=== PATIENT | male | born 1930 | race Caucasian/White ===

== ENCOUNTER 2016-02-19 18:16 | Emergency (ER) | payer OTHER ==
[~2016-02-19] VITALS: Ht 167.6 cm; Wt 88.5 kg
[~2016-02-19 18:16] MED LIST: CARVEDILOL12.5 MG PO; DIGOXIN0.125 MG PO; ELIQUIS5 M1 PO; FINASTERIDE5 MG PO; FUROSEMIDE40 MG PO; GLIPIZIDE10 MG PO; LISINOPRIL20 MG PO; MAGNESIUM OXID400 MG PO; METFORMIN850 MG PO; PRAVASTATIN SOD40 MG PO; TIKOSYN250 MCG PO; TRADJENTA5 MG PO; WARFARIN SODIUM5 MG PO
[2016-02-19] MEDS ORDERED: TAMSULOSIN HCL0.4 M1 PO (19:55)
[2016-02-19 19:57] LABS: ABSOLUTE BASOPHIL COUNT 0 /CUMM (0.0-0.2); ABSOLUTE EOSINOPHIL COUNT 0 /CUMM (0.0-0.7); ABSOLUTE GRANULOCYTE CT 11.1 /CUMM (1.4-6.5); ABSOLUTE LYMPH COUNT 1.3 /CUMM (1.2-3.4); ABSOLUTE MONOCYTE COUNT 0.2 /CUMM (0.10-0.60); BASOPHIL % 0.1 % (0.0-2.0); EOSINOPHIL % 0.1 % (0-5); GRANULOCYTE % 87.9 % (42.2-75.2); MEAN CORPUSCULAR HGB 29.4 PG (27.0-31.0); MEAN CORPUSCULAR HGB CONC 32.5 G/DL (33.0-37.0); MEAN CORPUSCULAR VOLUME 90.4 FL (80.0-94.0); MEAN PLATELET VOLUME 9.1 FL (7.4-10.4); PLATELET COUNT 232 /CUMM (130-400); RED BLOOD CELL CT 4.54 /CUMM (4.70-6.10); WHITE BLOOD CELL COUNT 12.7 /CUMM (4.8-10.8)
--- NOTE | 2016-02-19 21:15 | ED GI/GU/ABDOMINAL COMPLAINT ---
History of Present Illness General Chief Complaint: General Adult Stated Complaint: SIB WALK IN, SWOLLOWED LAUNDRY DETERGENT @ 1PM Source: patient, family Exam Limitations: no limitations Allergies Coded Allergies: NO KNOWN ALLERGIES (12/27/15) Triage Note: PT TO ED AFTER ACCIDENTLY INGESTING PART OF A GAIN TROPICAL LAUNDRY DETERGENT POD. PT REPORTING HE HAS VERY POOR VISION DUE TO CATARACTS AND SAW A BRIGHT PINK CONTAINER THAT SAID "TROPICAL AND ASSUMED IT WAS JUICE OR SOMETHING I PUT ONE IN MY MOUTH, BIT INTO IT AND REALIZED IT WAS BAD AND THEN SPIT IT OUT." PT REPORTING THIS HAPPENED AROUND 1 PM TODAY. STATES HE HAD ONE EPISODE OF VOMITING AND DIARRHEA POST INGESTION. PT NOW REPORTING WRETCHING AND "HOARSENESS". Triage Nurses Notes Reviewed? yes HPI: This patient is an 85-year-old male with a past medical history including hypertension who presented to the emergency department today accompanied by his family members for evaluation of nausea and vomiting after accidentally ingesting laundry detergent. The patient reported that he has cataracts and he saw something that said, "tropical," on it. He reported that he thought it was a gummy candy and put in his mouth. He reported that when he bit into it and it did not taste good so he put it down. However, he reported that the detergent gushed into his mouth. He reported that she tried to eat and drink several times after that, but whenever he tried to put anything in his mouth he vomited. He was feeling nauseous. The patient denied any fevers, chills, chest pain, difficulty breathing, abdominal pain. He reported that he did have several episodes of nonbloody diarrhea. The patient's family member called poison control that told him that it was too late to use activated charcoal and that he should come to the emergency department to have evaluation and blood work. (TIGIST JANE,HEIDE) Vital Signs & Intake/Output Vital Signs & Intake/Output Vital Signs Date Time Temp Pulse Resp B/P Pulse O2 O2 Flow FiO2 Ox Delivery Rate 02/18 2345 97.3 70 18 130/77 96 02/189 97.9 80 20 124/68 95 Room Air 02/18 1832 98.0 78 16 160/93 100 Room Air ED Intake and Output 02/19 0000 02/18 1200 Intake Total 0 Output Total Balance 0 Intake, Oral 0 Patient 195 lb Weight Reconcile Medications Apixaban (Eliquis) 5 MG TABLET 1 TAB PO BID BLOOD THINNER (Reported) Carvedilol 12.5 MG TABLET 1 TAB PO BID HEART (Reported) Digoxin 0.125 MG TAB 1 TAB PO DAILY CARDIAC (Reported) Dofetilide (Tikosyn) 250 MCG CAPSULE 1 CAP PO DAILY HEART (Reported) Finasteride 5 MG TABLET 5 MG PO DAILY BPH (Reported) Furosemide 40 MG TABLET 1 TAB PO DAILY CHF (Reported) Glipizide 10 MG TABLET 1 TAB PO DAILY NIDDM (Reported) Lisinopril 20 MG TABLET 20 MG PO DAILY HTN (Reported) Magnesium Oxide 400 MG TABLET 1 TAB PO BID CARDIAC (Reported) METFORMIN HCL (Metformin) 850 MG TABLET 850 MG PO BID NIDDM (Reported) Ondansetron (Zofran Odt) 4 MG TAB.RAPDIS 1 TAB SL TID PRN NAUSEA Pravastatin Sodium 40 MG TABLET 40 MG PO DAILY GI (Reported) Tamsulosin HCl (Unknown Strength) CAP.ER.24H (Unknown Dose) PO AD ( Reported) (LUIS ENRIQUE MC,CHELSEY Reyes) Past History Travel History Traveled to [place] past 21 day No Medical History Any Pertinent Medical History? see below for history EENT: cataracts Cardiovascular: hypertension Endocrine: diabetes History of MRSA: No History of VRE: No History of CDIFF: No Pneumonia Vaccine: 11/13/12 Influenza Vaccine: 11/13/08 Tetanus Vaccine: 12/27/15 Surgical History Surgical History: non-contributory Psychosocial History Who do you live with Spouse What is your primary language Qatari Tobacco Use: Never used ETOH Use: denies use Illicit Drug Use: denies illicit drug use Family History Family History, If Any: BROTHER FH: arrhythmia BROTHER Tumor FATHER FH: liver disease Hx Contributory? No (HEIDE ESCOTO PA-C) Review of Systems Review of Systems Constitutional: Reports: no symptoms. EENTM: Reports: no symptoms. Respiratory: Reports: no symptoms. Cardiovascular: Reports: no symptoms. GI: Reports: see HPI. Genitourinary: Reports: no symptoms. Musculoskeletal: Reports: no symptoms. Skin: Reports: no symptoms. Neurological/Psychological: Reports: no symptoms. All Other Systems: Reviewed and Negative (HEIDE ESCOTO PA-C) Physical Exam Physical Exam Gastrointestinal: normal bowel sounds, soft, non-tender, no organomegaly, NO REBOUND OR GUARDING. nO PERITONEAL SIGNS. nONDISTENDED Comments: Well-developed well-nourished person in no acute distress HEENT: Normal EENT exam, moist mucous membranes PERRLA bilaterally. EOMI bilaterally Neck: Supple, no lymphadenopathy Back: Normal inspection Cardiovascular: Regular rate and rhythm with no murmurs, rubs, or gallops Respiratory: No respiratory distress. Breath sounds clear to auscultation bilaterally Extremity: Normal and equal pulses Neuro: Alert oriented x3, cranial nerves II through XII grossly intact. Skin: No appreciable rash on exposed skin, skin is warm and dry. Psych: Mood and affect is normal Core Measures ACS in differential dx? No Severe Sepsis Present: No Septic Shock Present: No (HEIDE ESCOTO PA-C) Progress Differential Diagnosis: AMI, appendicitis, biliary colic, bowel obstruction, colon cancer, cholecystitis, diverticulitis, gastritis, ischemic bowel, inflamm bowel dis, Jayleen-Lebron tear, pancreatitis, PUD/GERD, perforated viscous, INGESTION OF POISONOUS SUBSTANCES, MEDICATION REACTION Initial ED EKG: normal axis, normal intervals, normal sinus rhythm, 80 BPM Comments: 02/19/2016 9:14:01 PM: Discussed this patient with poison control. She reported that detergent often irritates the GI tract and causes vomiting. This patient has stable vital signs. He is smiling and resting completely stretcher. Nontoxic appearing. We will PO challenge this patient with water. As long as he is able to tolerate fluids, this patient will be stable for discharge. 02/19/2016 10:11:17 PM: The patient was able to tolerate water without vomiting or nausea. However, one of the patient's family members when He had some hives on both his shoulders. The patient denied any itching. He denied any difficulty breathing. We'll give this patient IV Benadryl, Solu-Medrol, and Pepcid. (HEIDE ESCOTO PA-C) Plan of Care: Orders Procedure Date/time Status TROPONIN LEVEL 02/19 1932 Complete LIPASE 02/19 1932 Complete HEPATIC FUNCTION PANEL 02/19 1932 Complete CBC WITHOUT DIFFERENTIAL 02/19 1932 Complete BASIC METABOLIC PANEL 02/19 1932 Complete AMYLASE 02/19 1932 Complete EKG 02/19 1932 Active Laboratory Tests 02/19/161944: Anion Gap 14, Estimated GFR > 60, BUN/Creatinine Ratio 30.0 H, Glucose 196 H, Calcium 9.2, Total Bilirubin 1.1, Direct Bilirubin 0.4, AST 20, ALT 18 L, Alkaline Phosphatase 104, Troponin I < 0.01, Total Protein 8.1, Albumin 4.2, Amylase 103, Lipase 65, CBC w Diff NO MAN DIFF REQ, RBC 4.54 L, MCV 90.4, MCH 29.4, RDW 15.0 H, MPV 9.1, Gran % 87.9 H, Lymphocytes % 10.1 L, Monocytes % 1.8, Eosinophils % 0.1, Basophils % 0.1, Absolute Granulocytes 11.1 H, Absolute Lymphocytes 1.3, Absolute Monocytes 0.2, Absolute Eosinophils 0, Absolute Basophils 0, PUBS MCHC 32.5 L Departure Departure Disposition: HOME OR SELF CARE Condition: Stable Clinical Impression Primary Impression: Ingestion of detergent or soap Referrals: ARIN MC,JOSHUA (PCP/Family) Additional Instructions: Be sure to stay hydrated and rest. Take Zofran as prescribed for nausea. Please call to make a follow-up appointment with your primary care physician. Return for any worsening symptoms or concerns. Departure Forms: Customer Survey General Discharge Information Prescriptions: Current Visit Scripts Ondansetron (Zofran Odt) 1 TAB SL TID PRN NAUSEA #10 TAB (TIGIST JANE,HEIDE) PA/INSULATION WORKER APPRENTICE Co-Sign Statement Statement: ED Attending supervision documentation- [] I saw and evaluated the patient. I have also reviewed all the pertinent lab results and diagnostic results. I agree with the findings and the plan of care as documented in the PA's/INSULATION WORKER APPRENTICE's documentation. [x] I have reviewed the ED Record and agree with the PA's/INSULATION WORKER APPRENTICE's documentation. [] Additions or exceptions (if any) to the PAs/INSULATION WORKER APPRENTICE's note and plan are summarized below: [] (LUIS ENRIQUE MC,CHELSEY Reyes)
[2016-02-19] MEDS ORDERED: ZOFRAN ODT4 M1 SL (23:30)
[2016-02-19 23:45] VITALS: BP 130/77
== END 2016-02-20 00:16 ==
LOC: ERH 18:16
PROVIDERS: Pediatrics
DX: T55.0X1A Toxic effect of soaps, accidental (unintentional), initial encounter (principal)
CPT/HCPCS: 93005; 93010; 96374; 96375; J1200; J2930

== ENCOUNTER 2016-02-28 00:48 | Inpatient (IN) | payer OTHER ==
[~2016-02-28] VITALS: Ht 167.6 cm; Wt 88.5 kg
[2016-02-28] VITALS (7 sets, daily range): BP systolic 96–154; BP diastolic 62–84
[~2016-02-28 00:48] MED LIST changes: +TAMSULOSIN HCL0.4 M1 PO; +ZOFRAN ODT4 M1 SL
--- NOTE | 2016-02-28 00:58 | NUR ---
85YO MALE TO TRIAGE W/CO COUGH X 4 D, FEVER TONITE.
--- NOTE | 2016-02-28 01:10 | NUR ---
TO RM 6. 02 SAT ON RA = 85. 3L PLACED ON PT IV INSERTED.
--- NOTE | 2016-02-28 01:12 | NUR ---
RHONCHI PRESENT ALL THROUGHTOUT W/END EXP WHEEZES. STATES HE IS "ABLE TO COUGH UP SPUTUM AT TIMES AND ITS BEEN CLEAR"
--- NOTE | 2016-02-28 01:16 | NUR ---
02SAT ON 3L = 96
--- NOTE | 2016-02-28 01:30 | NUR ---
RESP TX GIVEN BY RT
--- NOTE | 2016-02-28 01:45 | NUR ---
PORTABLE CXRAY BEING DONE AT BEDSIDE NOW
--- NOTE | 2016-02-28 01:57 | RADIOLOGY REPORT ---
EXAMINATION: XR PORTABLE CHEST CLINICAL INFORMATION: Hypoxia, productive cough COMPARISON: 01/11/2014 TECHNIQUE: Portable view of the chest was obtained. FINDINGS: Left-sided pacemaker/AICD lead tips overlie the right atrium, right ventricle, and coronary sinus. Lung volumes are symmetric. No focal consolidation is seen. No evidence of pneumothorax or overt pulmonary edema. Trace pleural effusions are difficult to exclude. The cardiac silhouette remains prominent. Calcification is present at the aortic arch. No acute osseous findings are seen. IMPRESSION: No focal consolidation. Questionable trace pleural effusions.
[2016-02-28 02:07] LABS: ABSOLUTE BASOPHIL COUNT 0 /CUMM (0.0-0.2); ABSOLUTE EOSINOPHIL COUNT 0 /CUMM (0.0-0.7); ABSOLUTE GRANULOCYTE CT 11.5 /CUMM (1.4-6.5); ABSOLUTE LYMPH COUNT 1.1 /CUMM (1.2-3.4); ABSOLUTE MONOCYTE COUNT 0.6 /CUMM (0.10-0.60); BASOPHIL % 0.2 % (0.0-2.0); EOSINOPHIL % 0.3 % (0-5); GRANULOCYTE % 86.1 % (42.2-75.2); HEMATOCRIT 38.8 % (42-52); MEAN CORPUSCULAR HGB 29.4 PG (27.0-31.0); MEAN CORPUSCULAR HGB CONC 32.8 G/DL (33.0-37.0); MEAN CORPUSCULAR VOLUME 89.7 FL (80.0-94.0); MEAN PLATELET VOLUME 9.5 FL (7.4-10.4); PLATELET COUNT 188 /CUMM (130-400); RBC DISTRIBUTION WIDTH 15.1 % (11.5-14.5); RED BLOOD CELL CT 4.32 /CUMM (4.70-6.10)
--- NOTE | 2016-02-28 02:16 | ED DYSPNEA/ASTHMA COMPLAINT ---
History of Present Illness General Chief Complaint: Fever Stated Complaint: FEVER,COUGH Source: patient, family, old records Exam Limitations: no limitations Vital Signs & Intake/Output Vital Signs & Intake/Output Vital Signs Date Time Temp Pulse Resp B/P Pulse O2 O2 Flow FiO2 Ox Delivery Rate 02/27 0422 100.2 89 20 133/69 97 Nasal 3.0L Cannula 02/27 0151 96 Nasal 3.0L Cannula 02/27 0115 84 Room Air Room Air 02/27 114 22 96 Nasal 3.0L Cannula 02/27 0056 99.7 112 20 147/76 86 Room Air Allergies Coded Allergies: NO KNOWN ALLERGIES (12/27/15) Reconcile Medications Apixaban (Eliquis) 5 MG TABLET 1 TAB PO BID BLOOD THINNER (Reported) Carvedilol 12.5 MG TABLET 1 TAB PO BID HEART (Reported) Digoxin 0.125 MG TAB 1 TAB PO DAILY CARDIAC (Reported) Dofetilide (Tikosyn) 250 MCG CAPSULE 1 CAP PO DAILY HEART (Reported) Finasteride 5 MG TABLET 5 MG PO DAILY BPH (Reported) Furosemide 40 MG TABLET 1 TAB PO DAILY CHF (Reported) Glipizide 10 MG TABLET 1 TAB PO DAILY NIDDM (Reported) Lisinopril 20 MG TABLET 20 MG PO DAILY HTN (Reported) Magnesium Oxide 400 MG TABLET 1 TAB PO BID CARDIAC (Reported) METFORMIN HCL (Metformin) 850 MG TABLET 850 MG PO BID NIDDM (Reported) Ondansetron (Zofran Odt) 4 MG TAB.RAPDIS 1 TAB SL TID PRN NAUSEA Pravastatin Sodium 40 MG TABLET 40 MG PO DAILY GI (Reported) Tamsulosin HCl (Unknown Strength) CAP.ER.24H (Unknown Dose) PO AD ( Reported) Core Measure Meds Pre-Hospital Eliquis Triage Note: 85YO MALE TO TRIAGE W/CO COUGH X 4 D, FEVER TONITE. Triage Nurses Notes Reviewed? yes Onset: 3-4 days Duration: day(s):, constant, continues in ED, getting worse Timing: recent history Severity: severe Activities at Onset: rest Prior Episodes/Possible Cause: occasional episodes Modifying Factors: Improves With: rest. Worsens With: movement. Associated Symptoms: cough, fever, weakness HPI: 3-4 days prior to admission patient complains of productive cough fever chills dyspnea on exertion orthopnea decreased appetite. There's been no chest pain nausea vomiting diarrhea abdominal pain dysuria rash bleeding. Past History Travel History Traveled to [place] past 21 day No Medical History Any Pertinent Medical History? see below for history EENT: cataracts Cardiovascular: hypertension Endocrine: diabetes History of MRSA: No History of VRE: No History of CDIFF: No Tetanus Vaccine: 12/27/15 Surgical History Surgical History: non-contributory Psychosocial History Who do you live with Spouse What is your primary language Serbian Tobacco Use: Quit >30 days ago Family History Family History, If Any: BROTHER FH: arrhythmia BROTHER Tumor FATHER FH: liver disease Hx Contributory? No Review of Systems Review of Systems Constitutional: Reports: see HPI, malaise. EENTM: Reports: no symptoms. Respiratory: Reports: see HPI, cough, short of breath, sputum production. Cardiovascular: Reports: no symptoms. GI: Reports: no symptoms. Genitourinary: Reports: no symptoms. Musculoskeletal: Reports: no symptoms. Skin: Reports: no symptoms. Neurological/Psychological: Reports: no symptoms. Hematologic/Endocrine: Reports: no symptoms. Immunologic/Allergic: Reports: no symptoms. All Other Systems: Reviewed and Negative Physical Exam Physical Exam General Appearance: well developed/nourished, alert, awake, anxious, moderate distress Head: atraumatic, normal appearance Eyes: Bilateral: normal appearance, PERRL, EOMI. Ears, Nose, Throat: normal pharynx Neck: normal inspection, supple, full range of motion, no midline tenderness Respiratory: chest non-tender, decreased breath sounds, crackles, respiratory distress Cardiovascular: regular rate/rhythm, normal peripheral pulses, norml femoral pulses equa Peripheral Pulses: 4+ carotid (R), 4+ carotid (L), 2+ radial (R), 2+ radial (L) Gastrointestinal: normal bowel sounds, soft, non-tender, no organomegaly Extremities: normal inspection, normal capillary refill, normal range of motion, no edema, no ligament instability Neurologic/Psych: no motor/sensory deficits, awake, alert, oriented x 3, pest control service representative II- XII nml as tested Skin: intact, normal color, warm/dry Lymphatic: no anterior cervical albin Core Measures ACS in differential dx? No Severe Sepsis Present: No Septic Shock Present: No Progress Differential Diagnosis: AMI, CHF, COPD, pneumonia Plan of Care: Orders Procedure Date/time Status Regular Diet 02/28 B Active Patient Data 02/28 420 Active OXYGEN SETUP (GEN) 02/27 242 Active Saline Lock 02/27 242 Active Admit to inpatient 02/27 242 Active Add-on Test (ER Only) 02/27 242 Active Vital Signs 02/27 242 Active Activity/Ambulation 02/27 242 Active Code Status 02/27 242 Active EKG 02/27 239 Active BLOOD CULTURE 02/27 141 Active TROPONIN LEVEL 02/27 141 Complete COMPREHENSIVE METABOLIC PANEL 02/27 141 Complete CBC WITHOUT DIFFERENTIAL 02/27 141 Complete B-TYPE NATRIURETIC PEP (BNP) 02/27 141 Complete DIGOXIN 02/28 124 Complete Laboratory Tests 02/28/165: Anion Gap 15, Estimated GFR > 60, BUN/Creatinine Ratio 20.0, Glucose 218 H, Calcium 8.4, Total Bilirubin 1.0, AST 24, ALT 22, Alkaline Phosphatase 88, Troponin I 0.06, Xkt-Y-Szulxnsyzpu Pept 723 H, Total Protein 7.3, Albumin 3.7, Globulin 3.6, Albumin/Globulin Ratio 1.0 L, CBC w Diff NO MAN DIFF REQ, RBC 4.32 L, MCV 89.7, MCH 29.4, RDW 15.1 H, MPV 9.5, Gran % 86.1 H, Lymphocytes % 8.6 L, Monocytes % 4.8, Eosinophils % 0.3, Basophils % 0.2, Absolute Granulocytes 11.5 H, Absolute Lymphocytes 1.1 L, Absolute Monocytes 0.6, Absolute Eosinophils 0, Absolute Basophils 0, PUBS MCHC 32.8 L, Digoxin < 0.4 L Microbiology 02/27 134 BLOOD: Blood Culture - RECD 02/28 124 BLOOD: Blood Culture - RECD Diagnostic Imaging: Viewed by Me: Radiology Read. Discussed w/RAD: Radiology Read. Initial ED EKG: pacemaker rhythm Prior EKG: unchanged Rhythm Strip: normal sinus rhythm Departure Departure Disposition: STILL A PATIENT Condition: Stable Clinical Impression Primary Impression: Pneumonia Qualifiers: Pneumonia type: due to unspecified organism Laterality: unspecified laterality Lung location: unspecified part of lung Qualified Code: J18.9 - Pneumonia, unspecified organism Secondary Impressions: Hypoxia Referrals: JOSHUA HINKLE MD (PCP/Family) Departure Forms: Customer Survey General Discharge Information Admission Note Spoke With: RAYMUNDO MD,SITALAKSHMI Documentation of Exam: Documentation of any treatments & extenuating circumstances including Concerns Regarding Discharge (functional status, medication knowledge or non-compliance, living conditions, etc.) that warrant an admission rather than observation: Supplemental oxygen IV antibiotics follow cultures medication adjustment physical therapy continuing care discharge planning Critical Care Note Critical Care Note Critical Care Time: non-applicable
--- NOTE | 2016-02-28 02:20 | NUR ---
SAT ON 3L = 95. AWAITING LABS AND XR RESULTS.
[2016-02-28 02:30] LABS: WHITE BLOOD CELL COUNT 13.4 /CUMM (4.8-10.8)
--- NOTE | 2016-02-28 03:00 | NUR ---
DR EDUARDO IN TO RE EVAL. ROCEPHIN 1G GIVEN IV
--- NOTE | 2016-02-28 04:27 | NUR ---
TO BE ADMITTED. RESTLESS ON STRETCHER. ASSISTED TO CHAIR--STATES HE IS "MORE COMFORTABLE SITTING IN CHAIR" O2 SAT ON 3L = 98 VIBRAMYCIN INFUSING.
--- NOTE | 2016-02-28 04:27 | History & Physical ---
CAROLE LASSITER MD 02/28/16 0426: General Information and HPI MD Statement: I have seen and personally examined KATLIN RAVI SR and documented this H&P. The patient is a 85 year old M who presented with a patient stated chief complaint of [cough,fever,chills]. Source of Information: patient, family Exam Limitations: no limitations History of Present Illness: 85-year-old male with PMH atrial fibrillation on eliquis, AICD, pacemaker, HLD, HTN, BPH, NIDDM, presented for cough of 4 days duration, fever of 102 at home just prior to presenting at the ED, associated with chills. His cough is thick and clear, initially he was able to bring it up with mucinex, but now unable to bring anything up. He has orthopnea, preventing him from sleeping for the last 3 nights. He coughs when he tries to lie down. He cannot fall asleep even on the recliner. He also has dyspnea on exertion. At baseline, he can walk a 10 degree incline for about 100 feet, but now he can barely take 10 steps before getting short of breath. Pt is a former smoker, with > 120 pack year smoking hx. He has not been diagnosed with lung disease in the past. He drinks about 1 beer a week now. Denies illicit drug use. He reports chronic constipation, but has had regular normal BM over the last 2 days. Of note, last week, he accidentally ingested tide pod detergent and had vomiting and diarrhea that resolved overnight. He presented to the ED and was discharged. He has BPH, and about 1 month ago, was started on tamsulosin, after which he had incontinence. He no longer takes that. Reports trouble starting and stopping urination due to BPH. He sees both Dr. Hansen and Dr. Thompson. Allergies/Medications Allergies: Coded Allergies: NO KNOWN ALLERGIES (12/27/15) Past History Travel History Traveled to [place] past 21 day No Medical History Blood Transfusion Hx: Yes EENT: cataracts Cardiovascular: AFIB, hypertension, hyperlipidemia Gastrointestinal: lower GI bleed, angiodysplasia sp cauterization Renal: BPH Endocrine: diabetes History of MRSA: No History of VRE: No History of CDIFF: No Tetanus Vaccine: 12/27/15 Surgical History Surgical History: non-contributory Past Family/Social History Family History Relations & Conditions if any BROTHER FH: arrhythmia BROTHER Tumor FATHER FH: liver disease Psychosocial History Where do you live? Home Who Do You Live With? spouse Services at Home: None Primary Language: Greenlandic Smoking Status: Former Smoker ETOH Use: occasional use Illicit Drug Use: denies illicit drug use Living Will? no Functional Ability ADLs Independent: dressing, eating, toileting, bathing. Ambulation: cane Review of Systems Review of Systems Constitutional: Reports: chills, fever. EENTM: Denies: nasal congestion, throat pain. Cardiovascular: Reports: orthopena. Denies: chest pain, palpitations. Respiratory: Reports: cough, orthopnea, short of breath, sputum production. GI: Denies: abdominal pain, bloating, constipation, diarrhea, nausea, bloody stool, changes in stool, vomiting. Genitourinary: Reports: hesitation. Exam & Diagnostic Data Last 24 Hrs of Vital Signs/I&O Vital Signs Date Time Temp Pulse Resp B/P Pulse O2 O2 Flow FiO2 Ox Delivery Rate 02/27 0422 100.2 89 20 133/69 97 Nasal 3.0L Cannula 02/27 0151 96 Nasal 3.0L Cannula 02/27 0115 84 Room Air Room Air 02/27 0115 22 96 Nasal 3.0L Cannula 02/27 0056 99.7 112 20 147/76 86 Room Air Intake & Output 02/27 0800 02/27 0000 02/26 1600 Intake Total 0 Output Total Balance 0 Intake, Oral 0 Patient 88.451 kg Weight Physical Exam General Appearance Alert, Oriented X3, Cooperative, No Acute Distress Skin No Significant Lesion HEENT Atraumatic, PERRLA, EOMI, Mucous Membr. moist/pink Neck No JVD, +2 Carotid Pulse wo Bruit Lymphatic Axillary nl, Cervical nl Cardiovascular Regular Rate, Normal S1, Normal S2, No Murmurs, Gallops, Rubs Lungs diffuse expiratory rhonchi Abdomen Normal Bowel Sounds, Soft, No Tenderness Neurological Normal Speech Extremities Normal Pulses, dependent edema Last 24 Hrs of Labs/Rajinder: Laboratory Tests 02/28/16 0125: Anion Gap 15, Estimated GFR > 60, BUN/Creatinine Ratio 20.0, Glucose 218 H, Calcium 8.4, Total Bilirubin 1.0, AST 24, ALT 22, Alkaline Phosphatase 88, Troponin I 0.06, Thw-Z-Jsbxrewujyy Pept 723 H, Total Protein 7.3, Albumin 3.7, Globulin 3.6, Albumin/Globulin Ratio 1.0 L, CBC w Diff NO MAN DIFF REQ, RBC 4.32 L, MCV 89.7, MCH 29.4, RDW 15.1 H, MPV 9.5, Gran % 86.1 H, Lymphocytes % 8.6 L, Monocytes % 4.8, Eosinophils % 0.3, Basophils % 0.2, Absolute Granulocytes 11.5 H, Absolute Lymphocytes 1.1 L, Absolute Monocytes 0.6, Absolute Eosinophils 0, Absolute Basophils 0, PUBS MCHC 32.8 L, Digoxin < 0.4 L Microbiology 02/27 0501 URINE ROUT: Legionella Antigen - ORD 02/27 050 URINE ROUT: Streptococcus pneumoniae Antigen (M - ORD 02/27 050 LOWER RESP: Respiratory Culture - ORD 02/27 050 LOWER RESP: Gram Stain - ORD 02/27 0135 BLOOD: Blood Culture - RECD 02/28 124 BLOOD: Blood Culture - RECD Diagnostic Data EKG Results Ventricular paced, rate 96 CXR Results IMPRESSION: No focal consolidation. Questionable trace pleural effusions. Assessment/Plan Assessment: 85-year-old male with PMH atrial fibrillation on eliquis, AICD, pacemaker, HLD, HTN, BPH, NIDDM, presented for cough, fever, and chills. Pt admitted to with the following problems addressed: # Acute bronchitis vs developing pneumonia - Given 1 time ceftriaxone and doxycycline in the ED * Continue ceftriaxone and doxycycline * Follow BCX2, LRC, gram stain, urine legionella, strep pneumo, rapid flu # Hx of CHF * Continue lasix 40 mg daily * Consider echo given the orthopnea * Repeat trop and EKG, first set of trop negative * Consider consult with Dr. Thompson on monday # Atrial fibrillation * Continue eliquis * Continue carvedilol 12.5 bid * Continue digoxin 0.125 mg daily * Continue dofetilide 250 mcg daily # BPH * Continue finasteride 5 mg daily # HLD * Continue pravastatin 40 mg daily # HTN * Continue lisinopril 20 mg daily # Diabetes * Hold home metformin and glipizide * Accucheck and novolog ss Diet: CC3 DVT [facility] FULL CODE As Ranked By This Provider Problem List: 1. Bronchitis Core Measures/Miscellaneous Acute Coronary Syndrome ACS Diagnosis: No Cerebrovascular Accident CVA/TIA Diagnosis: No Congestive Heart Failure CHF Diagnosis: No Venous Thromboembolism VTE Risk Factors: Acute medical illness, Age > 40 VTE Prophylaxis Ordered Inpt: Mech & Pharm No Mech VTE prophylaxis d/t: No contraindications No VTE Pharm Prophylaxis d/t: No contraindications VTE Diagnosis: No VTE Type: NONE VTE Confirmed by (Test): NONE Severe Sepsis Severe Sepsis Present: No Septic Shock Septic Shock Present: No Miscellaneous Documentation Attending Case Discussed With: OZZIE FONSECA MDAlba Primary Care Physician: ARIN MCJOSHUA Patient sees these Specialists Dr Thompson tempering kiln tender Dr Hansne tempering kiln tender Level of Patient Care: General Medicine GEOFFREY MARTINEZ 02/28/16 0718: Resident Review Statement Resident Statement: examined this patient, discussed with logistics intern, agreed with logistics intern, discussed with family, reviewed EMR data (avail), reviewed images, amended to note Other Findings: This is 85-year-old male with past medical history of atrial fibrillation on eliquis, AICD, pacemaker, lipidemia, hypertension, BPH, diabetes mellitus, congestive heart failure, presented for cough of 4 days duration, fever of 102 at home just prior to presenting at the ED, associated with chills. Patient reports orthopnea that is preventing him from sleep, patient states also his difficulty breathing getting worse with exertion. Patient denies any chest pain or discomfort. Physical examination, lab and imaging as above. Problem list: -Community-acquired pneumonia versus acute bronchitis -Orthopnea that could be due to worsening CHF -Leukocytosis Plan: -Admit patient to general medicine floor -Vitals every shift, strict TAMANNA's -Troponin and EKG. -Continue IV ceftriaxone and doxycycline as azithromycin may prolong QTC. -Mucinex 600 mg twice daily, TRC nebs as needed -Sputum, blood culture, strep and Legionella urine antigen -Accu-Chek, insulin sliding scale, consistent carbohydrate diet -Repeat CBC and basic panel electrolyte later today -Hold home medication of metformin, glipizide -Continue home medication including Eliquis, digoxin, Dofetilide. -Pain pathway -DVT prophylaxis: Eliquis -Full code RAYMUNDO MC, NANI 02/28/161956: Attending MD Review Statement Attending Statement Attending Assessment/Plan: Patient was admitted by Dr. Adia Kearney. Please refer to his seperate addendum. ADIA KEARNEY 03/04/16 1254: General Information and HPI Allergies/Medications Home Med list Amoxicillin/Clavulanate Potass (Amox-Clav 875-125 MG Tablet) 875 MG-125 MG TABLET 875 MG PO Q12 PNA Apixaban (Eliquis) 5 MG TABLET 1 TAB PO BID BLOOD THINNER (Reported) Carvedilol 12.5 MG TABLET 1 TAB PO BID HEART (Reported) Digoxin 0.125 MG TAB 1 TAB PO DAILY CARDIAC (Reported) Dofetilide (Tikosyn) 250 MCG CAPSULE 1 CAP PO DAILY HEART (Reported) Finasteride 5 MG TABLET 5 MG PO DAILY BPH (Reported) Furosemide 40 MG TABLET 1 TAB PO DAILY CHF (Reported) Glipizide 10 MG TABLET 1 TAB PO DAILY NIDDM (Reported) Lisinopril 20 MG TABLET 20 MG PO DAILY HTN (Reported) Magnesium Oxide 400 MG TABLET 1 TAB PO BID CARDIAC (Reported) METFORMIN HCL (Metformin) 850 MG TABLET 850 MG PO BID NIDDM (Reported) Ondansetron (Zofran Odt) 4 MG TAB.RAPDIS 1 TAB SL TID PRN NAUSEA Pravastatin Sodium 40 MG TABLET 40 MG PO DAILY GI (Reported) Tamsulosin HCl (Unknown Strength) CAP.ER.24H (Unknown Dose) PO AD ( Reported) Attending MD Review Statement Attending Statement Attending MD Statement: examined this patient, discuss w/resident/PA/HAND SILVERING SUPERVISOR, agreed w/resident/PA/HAND SILVERING SUPERVISOR, reviewed EMR data (avail) Attending Assessment/Plan: 85-year-old male with past medical history of atrial fibrillation on eliquis, AICD, pacemaker, hyperlipidemia, hypertension, BPH, diabetes mellitus, congestive heart failure, and extensive smoking history presented for cough of 3-4 days duration, fever of 102 at home just prior to presenting at the ED, associated with chills. Acute bronchitis/pneumonia-we'll continue with IV ceftriaxone and doxycycline for now. Non-ST elevation [place]-type I versus type II myocardial infarction. Will get cardiology consult and do serial troponins and monitor on telemetry. Patient already on eliquis and was started on full dose aspirin.
--- NOTE | 2016-02-28 04:42 | NUR ---
HOUSE STAFF HERE TO EVAL AND WRITE ADMIT ORDERS.
--- NOTE | 2016-02-28 06:02 | NUR ---
REPORT CALLED TO TIFFANIE BOYD
--- NOTE | 2016-02-28 06:16 | NUR ---
Emergency Dept UC Admit Note: To be admitted to [facility] by DR. FONSECA with PNEUMONIA as the diagnosis, to [address]. Nursing Tentering Machine Off Bearer and admitting notified 02/28/16 at 0501
--- NOTE | 2016-02-28 09:38 | Event Note ---
Event Note Event Note: 85 yrs old male admitted overnight for cough/fever/worsening shortness of breath. Patient evaluated for positive troponin this morning. Denies chest pain , dizziness, syncope, palpitations. Complains of shortness of breath over the last 2 weeks which is old worsened over the last 3 days. Last cardiac cath and stress test was about 8 years ago which apparently was normal according to the patient. Follows Dr. Thompson and Dr. Hansen Examination appears comfortable in bed, no acute distress Cardiovascular: S1, S2 regular no murmurs Respiratory: Bilateral diffuse rhonchi present, no crackles Nontender Extremities: Bilateral pedal edema present Assessment and plan 1. NSTEMI: Positive troponins could be secondary to demand in the setting of infection versus a new cardiac event. Patient is asymptomatic with no active chest pain. EKG showed AV paced which is similar to the previous EKG. Transfer the patient to telemetry. We will obtain follow-up EKG/troponins, cardiology consult, echocardiogram. He is on Eliquis which we will continue. Further recommendation per cardiology. Signed out to the ICU team to follow up on the above-mentioned tests.
--- NOTE | 2016-02-28 11:00 | NUR ---
Patient transferred from [facility] at approx 1000 for positive troponins as a TELE hold - pt arrived on monitoring manager accompanied by RN and was settled into ICU bed. Pt is alert and oriented x's 3, able to follow commands and respond approp. LCW pacer AICD in place and pt is paced with a heart rate in the 80's. SBP: 130-140's at this time and pt currently denies chest pain. Troponin 0.34 this am and EKG done at prior to arrival to ICU- next redraw at 1400 along with EKG. On 3L nc, lungs rhonchorous- pt c/o SOB with exertion. A productive cough is noted moderate amount of thick yellow sputum. Abdomen is distended and soft with + bowel sounds. Pt tolerating po well and denies any nausea. Voiding clear yellow urine in urinal per report. Trace BLE edema is noted and skin is otherwise intact. Pt currently denies any pain. House staff in to assess patient. Patient swabbed for the flu at this time. ECHO ordered and Dr. Horner consulted. Po meds given. Will continue to closely monitor patient.
--- NOTE | 2016-02-28 14:00 | NUR ---
Patient placed on droplet precautions for + flu swab. Patient and family updated and educated on droplet precautions information. Vitals currently stable and pt offers no complaints. Will continue to closely monitor patient.
--- NOTE | 2016-02-28 16:37 | Event Note ---
Event Note Event Note: Situation: * Elevated troponins Brief: * Patient had extensive cardiac history with A.Fib on eliquis, AICD, Pacemaker, HLD, HTN was found to have elevated troponins in the morning. He is given a single dose of aspirin 325mg and transfered to ICU. * Trops are trended with 0.06-->0.34-->0.47. * No significant changes in the EKG and completely asymptomatic without any chest pain, pressure. Assessment and Plan: * Most probable reason behind this elevation is demand ischaemia. * Currently we are watching, trending troponins and EKG. * Patient is already on eliquis and recieved one dose of aspirin. * is consulted and he agrees with the plan This plan is in agreement with my resident - and me together.
--- NOTE | 2016-02-28 17:08 | Admission Certification ---
Admission Certification Certification Statement - As attending physician, I certify that at the time of - admission, based on clinical presentation, severity of - symptoms, need for further diagnostic testing and - therapeutic interventions, and risk of adverse outcomes - without in-hospital treatment, in my clinical assessment, - this patient requires an acute hospital stay for a minimum - of two nights or longer. I have also considered psychsocial - factors such as support system, advanced age, financial - issues, cognitive issues, and failed out-patient treatments, - past re-admission history, safety of patient, and lack of - compliance as applicable. Specific rationale supporting this admission is: NSTEMI with positive troponins and Pneumonia/ Acute Bronchitis.
--- NOTE | 2016-02-28 17:16 | PN- Att Addend ---
Attending MD Review Statement Attending Statement Attending MD Statement: examined this patient, discuss w/resident/PA/PRODUCT SAFETY HEAD, agreed w/resident/PA/PRODUCT SAFETY HEAD, reviewed EMR data (avail), discussed w/nursing Attending Assessment/Plan: 85-year-old male with past medical history of atrial fibrillation on eliquis, AICD, pacemaker, hyperlipidemia, hypertension, BPH, diabetes mellitus, congestive heart failure, and extensive smoking history presented for cough of 3-4 days duration, fever of 102 at home just prior to presenting at the ED, associated with chills. Acute bronchitis/pneumonia-we'll continue with IV ceftriaxone and doxycycline for now. Non-ST elevation [place]-type I versus type II myocardial infarction. Will get cardiology consult and do serial troponins and monitor on telemetry. Patient already on eliquis and was started on full dose aspirin. Discussed with patient the care plan.
[2016-02-28 17:33] LABS: ABSOLUTE BASOPHIL COUNT 0 /CUMM (0.0-0.2); ABSOLUTE EOSINOPHIL COUNT 0 /CUMM (0.0-0.7); ABSOLUTE LYMPH COUNT 1.4 /CUMM (1.2-3.4); BASOPHIL % 0.2 % (0.0-2.0); EOSINOPHIL % 0.1 % (0-5); GRANULOCYTE % 81.6 % (42.2-75.2); MEAN CORPUSCULAR HGB 29.4 PG (27.0-31.0); MEAN CORPUSCULAR HGB CONC 32.6 G/DL (33.0-37.0); MEAN CORPUSCULAR VOLUME 90.2 FL (80.0-94.0); MEAN PLATELET VOLUME 9.1 FL (7.4-10.4); PLATELET COUNT 164 /CUMM (130-400); RBC DISTRIBUTION WIDTH 15.1 % (11.5-14.5); RED BLOOD CELL CT 3.88 /CUMM (4.70-6.10); WHITE BLOOD CELL COUNT 13.5 /CUMM (4.8-10.8)
--- NOTE | 2016-02-28 18:42 | ECHOCARDIOGRAM REPORT ---
KATLIN RAVI Age: 85 : 1930 Gender: M Exam Date: 02/28/2016 13:10 Exam Location: [facility] Ht (in): 66 Wt (lb): 195 BSA: 2.06 BP: 152 / 80 Ordering Physician: KEN SHARMA MD Referring Physician: Juan Jose Thompson MD Technologist: Laureen Mclaughlin [facility] Room Number: 106 Indications: SHORTNESS OF BREATH Rhythm: Sinus Technical Quality: Fair, Technically difficult study FINDINGS Left Ventricle Mild left ventricular dilatation. Hypokinetic inferior wall. Borderline normal left ventricular ejection fraction estimated at 50-55%. Right Ventricle Right ventricle not well visualized, grossly normal. Catheter/pacemaker wire in the right ventricular cavity. Right Atrium Normal right atrial size. Catheter/pacemaker wire in the right atrial cavity. Left Atrium Mild to moderate left atrial dilatation. Mitral Valve Mitral valve thickened. Mitral annular calcification. Trace to mild mitral regurgitation. Aortic Valve Trileaflet aortic valve. Diffuse thickening (sclerosis) of the aortic valve cusps without reduced excursion. No aortic stenosis. No aortic regurgitation. Tricuspid Valve Tricuspid valve not well visualized, grossly normal. Mild tricuspid regurgitation. Right ventricular systolic pressure estimated at 32 mmHg. Pulmonic Valve Pulmonic valve not well visualized, grossly normal. Mild pulmonic regurgitation. Pericardium No pericardial effusion. Great Vessels Normal size aortic root and proximal ascending aorta. CONCLUSIONS 1. This was a technically difficult examination. 2. MOderate aortic sclerosis is present in a trileaflet aortic valve with no valvular stenosis or insufficiency. 3. Mitral leaflet thickening is present with mild anular calcification and minimal to mild mitral insufficiency with mild to moderate left atrial enlargement. 4. There is no pericardial fluid detected. 5. The left ventricular chamber is mildly dilated. There is localized inferoposterior hypokinesia with an ejection fraction of approximately 50-55%. MIld eccentric hypertrophy is present. 6. The right heart structures were not optimally visualized. Mild tricuspid and pulmonic insufficiency are present with no evidence of pulmonary hypertension. 7. Pacemaker wires are present in the right heart chambers. Juan Jose Thompson M.D. (Electronically Signed) Final Date: 28 February 2016 18:41 MEASUREMENTS (Male / Female) Normal Values 2D ECHO LV Diastolic Diameter PLAX 6.3 cm 4.2 - 5.9 / 3.9 - 5.3 cm LV Systolic Diameter PLAX 4.4 cm 2.1 - 4.0 cm LV Fractional Shortening PLAX 30.2 % 25 - 46 % LV Ejection Fraction 2D Teich 56.4 % IVS Diastolic Thickness 1.4 cm LVPW Diastolic Thickness 1.4 cm LV Relative Wall Thickness 0.4 RV Internal Dim ED PLAX 2.6 cm 1.9 - 3.8 cm LVOT Diameter 2.0 cm Aortic Root Diameter 3.3 cm LA Systolic Diameter LX 4.4 cm 3.0 - 4.0 / 2.7 - 3.8 cm LA Volume 56.0 cm 18 - 58 / 22 - 52 cm Ascending Aorta Diameter 3.1 cm DOPPLER AV Peak Velocity 162.0 cm/s AV Peak Gradient 10.5 mmHg AV Mean Velocity 119.0 cm/s AV Mean Gradient 6.0 mmHg AV Velocity Time Integral 30.6 cm LVOT Peak Velocity 82.0 cm/s LVOT Peak Gradient 2.7 mmHg LVOT Mean Velocity 57.6 cm/s LVOT Mean Gradient 2.0 mmHg LVOT Velocity Time Integral 13.2 cm LVOT Stroke Volume 41.5 cm AV Area Cont Eq vti 1.4 cm AV Area Cont Eq pk 1.6 cm MV Peak Velocity 84.1 cm/s MV Peak Gradient 2.8 mmHg MV Mean Velocity 49.6 cm/s MV Mean Gradient 1.0 mmHg Mitral E Point Velocity 79.0 cm/s Mitral A Point Velocity 37.0 cm/s Mitral E to A Ratio 2.1 MV PHT Velocity 83.5 cm/s MV Deceleration [place] 280.0 cm/s MV Pressure Half Time 89.5 ms MV Area PHT 2.5 cm MV Deceleration Time 177.0 ms TR Peak Velocity 262.0 cm/s TR Peak Gradient 27.5 mmHg Right Atrial Pressure 5.0 mmHg Pulmonary Artery Systolic Pressu 32.5 mmHg Right Ventricular Systolic Press 32.5 mmHg PV Peak Velocity 97.9 cm/s PV Peak Gradient 3.8 mmHg PV Mean Velocity 69.3 cm/s PV Mean Gradient 2.0 mmHg PV Velocity Time Integral 18.0 cm LV E' Lateral Velocity 9.6 cm/s Mitral E to LV E' Lateral Ratio 8.3 LV E' Septal Velocity 5.1 cm/s Mitral E to LV E' Septal Ratio 15.6
[2016-02-29 05:34] LABS: ABSOLUTE BASOPHIL COUNT 0 /CUMM (0.0-0.2); ABSOLUTE EOSINOPHIL COUNT 0 /CUMM (0.0-0.7); ABSOLUTE GRANULOCYTE CT 6.8 /CUMM (1.4-6.5); ABSOLUTE LYMPH COUNT 1.5 /CUMM (1.2-3.4); ABSOLUTE MONOCYTE COUNT 0.7 /CUMM (0.10-0.60); BASOPHIL % 0.2 % (0.0-2.0); EOSINOPHIL % 0.5 % (0-5); GRANULOCYTE % 75.1 % (42.2-75.2); HEMATOCRIT 33.3 % (42-52); MEAN CORPUSCULAR HGB 29.2 PG (27.0-31.0); MEAN CORPUSCULAR HGB CONC 32.3 G/DL (33.0-37.0); MEAN CORPUSCULAR VOLUME 90.4 FL (80.0-94.0); MEAN PLATELET VOLUME 8.9 FL (7.4-10.4); PLATELET COUNT 155 /CUMM (130-400); RED BLOOD CELL CT 3.68 /CUMM (4.70-6.10)
[2016-02-29 08:00] VITALS: BP 110/62
--- NOTE | 2016-02-29 08:28 | NUR ---
0800: RECEIVED PT IN BED. ASLEEP BUT WOKE TO CALLING HIS NAME. A+OX3. ON 2L NC. RHONCHI THROUGHOUT. PRODUCTIVE COUGH NOTED. ABDOMEN SOFT. +BS. LAST BM 1-14. VOIDED IN URINAL, 50ML. SKIN INTACT. NO EDEMA NOTED. PT IS TELE HOLD. DUAL PACED/SINGLE PACED ON MONITOR, UNDERLYING AFIB WITH OCCASSIONAL PVC'S. DENIES CHEST PAIN AT THIS TIME. PT REQUESTING TO "CATCH UP ON HIS SLEEP." ON DROPLET PRECAUTIONS FOR +FLU. #[address] WILL MONITOR.
--- NOTE | 2016-02-29 10:50 | PN- Housestaff ---
CARLOS CHARLTON MD 02/29/16 1049: Subjective Follow-up For: URI, PNA vs influenza Subjective: Patient seen and examined. He is seen lying flat in bed resting comfortably. He reports being well last night however is still tired this morning, and otherwise denies any chest pain or worsening shortness of breath. He does admit to a persistent cough. Additionally he denies any headache, fever, chills, palpitations, nausea, vomiting, diarrhea. No overnight events reported. Review of Systems Constitutional: Reports: see HPI. Denies: chills. Objective Last 24 Hrs of Vital Signs/I&O Vital Signs Date Time Temp Pulse Resp B/P Pulse O2 O2 Flow FiO2 Ox Delivery Rate 02/28 1023 Nasal 2.0L Cannula 02/28 0943 79 110/62 02/28 0943 79 110/62 02/28 0800 Nasal 2.0L Cannula 02/28 0800 99.1 69 20 110/62 96 Nasal 2.0L Cannula 02/28 0000 95 Nasal 2.0L Cannula 02/27 2325 96.9 66 20 96/62 95 Nasal 2.0L Cannula 02/27 2134 80 104/58 02/27 2121 95 Nasal 2.0L Cannula 02/27 2000 Nasal 2.0L Cannula 02/27 1999 97.9 83 21 102/68 02/27 1854 97.9 106/64 02/27 1636 81 102/64 02/27 1600 96 Nasal 2.0L Cannula 02/27 1600 97.9 80 22 102/64 96 Nasal 2.0L Cannula 02/27 1130 95 Nasal 2.0L Cannula 02/27 1124 Nasal 2.0L Cannula Intake & Output 02/28 1600 02/28 0800 02/28 0000 Intake Total 480 250 360 Output Total 100 175 300 Balance 380 75 60 Intake, IV 130 0 Intake, Oral 480 120 360 Number 0 0 Bowel Movements Output, Urine 100 175 300 Physical Exam General Appearance: Alert, Oriented X3, Cooperative, No Acute Distress Other Physical Findings: General - well developed, well nourished elderly male in no acute distress HEENT - NCAT, PERRL, EOMI, anicteric sclera Cardio - S1, S2 w/o murmurs/gallops/rubs Resp - GI - soft, nontender, nondistended, bowel sounds present Neuro - Awake and alert, CN II - XII grossly intact Extremities - no edema, pulses intact Current Medications: Current Medications Sig/Constance Start time Last Medication Dose Route Stop Time Status Admin Acetaminophen 650 MG Q6P PRN 02/27 0500 AC PO Albuterol Sulfate 3 ML BID 02/27 2200 AC 02/28 INH 1021 Apixaban 5 MG BID 02/27 1000 AC 02/28 PO 0940 Aspirin 81 MG DAILY 02/28 1000 AC 02/28 PO 0940 Atorvastatin Calcium 40 MG 1700 02/27 1015 AC 02/27 PO 1636 Carvedilol 12.5 MG BID 02/27 1000 AC 02/28 PO 0943 Ceftriaxone Sodium 1,000 MG 1800 02/27 1800 AC 02/27 IV 1841 Digoxin 0.125 MG 1700 02/27 1700 AC 02/27 PO 1636 Dofetilide 250 MCG DAILY 02/27 1000 AC 02/28 PO 0940 Doxycycline Hyclate 100 MG Q12H 02/27 1600 AC 02/28 Sodium Chloride 100 ML IV 0407 Finasteride 5 MG DAILY 02/27 1000 AC 02/28 PO 0940 Furosemide 40 MG DAILY 02/27 1000 DC 02/28 PO 0940 Guaifenesin 600 MG Q12 02/27 1000 AC 02/28 PO 0940 Insulin Aspart 0 TIDAC 02/27 0800 AC 02/27 SC 1152 Lisinopril 20 MG DAILY 02/27 1000 DC 02/28 PO 0943 Oseltamivir Phosphate 75 MG BID 02/27 1527 AC 02/28 PO 03/03 1526 0940 Potassium Chloride 40 MEQ ONCE ONE 02/27 1800 DC 02/27 PO 02/27 1801 1840 Sodium Chloride 1,000 ML ONCE ONE 02/28 1100 AC 02/28 IV 03/01 0019 1104 Last 24 Hrs of Lab/Rajinder Results Last 24 Hrs of Labs/Mics: Laboratory Tests 02/29/16 0512: Anion Gap 7, Estimated GFR 41 L, Glucose 202 H, Calcium 7.7 L, Phosphorus 4.7 H, Magnesium 1.8, Total Bilirubin 0.6, AST 18, ALT 23, Troponin I 0.27 *H, Albumin 3.0 L, CBC w Diff NO MAN DIFF REQ, RBC 3.68 L, MCV 90.4, MCH 29.2, RDW 15.0 H, MPV 8.9, Gran % 75.1, Lymphocytes % 16.4 L, Monocytes % 7.8, Eosinophils % 0.5, Basophils % 0.2, Absolute Granulocytes 6.8 H, Absolute Lymphocytes 1.5, Absolute Monocytes 0.7 H, Absolute Eosinophils 0, Absolute Basophils 0, PUBS MCHC 32.3 L 02/28/16 2032: Troponin I 0.40 *H 02/28/16 1620: CBC w Diff NO MAN DIFF REQ, RBC 3.88 L, MCV 90.2, MCH 29.4, RDW 15.1 H, MPV 9.1, Gran % 81.6 H, Lymphocytes % 10.5 L, Monocytes % 7.6, Eosinophils % 0.1, Basophils % 0.2, Absolute Granulocytes 11.0 H, Absolute Lymphocytes 1.4, Absolute Monocytes 1.0 H, Absolute Eosinophils 0, Absolute Basophils 0, PUBS MCHC 32.6 L 02/28/16 1400: Troponin I Cancelled 02/28/16 1400: Anion Gap 9, Estimated GFR 57 L, BUN/Creatinine Ratio 19.2, Troponin I 0.47 *H Microbiology 02/27 2100 LOWER RESP: Respiratory Culture - RES 02/27 2100 LOWER RESP: Gram Stain - RES 02/27 1999 URINE ROUT: Legionella Antigen - COMP 02/27 1999 URINE ROUT: Streptococcus pneumoniae Antigen (M - COMP Assessment/Plan Assessment: Patient is clinically improving on the current regiment of intravenous antibiotics and supportive measures. Creatinine has worsened today possibly secondary to dehydrate. Lasix/Lisinopril are held for today and are to be restarted when creatinine levels normals. Intravenous fluid are to be given today. Problem List: - Upper respiratory infection - Positive rapid influenza, on tamiflu - Possible pneumonia, on antibiotics - Elevated troponins, on anticoagulation Respiratory/Infectious Disease: -TRC/neb -Ceftriaxone 1g IV Daily -Doxycycline 100mg IV Q12H -Tamiflu 75mg PO BID -Mucinex 600mg PO Q12H Cardiovascular: History of Atrial Fibrillation on Eliquis, AICD, PM, HLD, HTN. -Aspirin 81mg PO Daily -Atorvastatin 40mg PO Daily -Coreg 12.5mg PO BID -Eliquis 5mg PO BID -Digoxin 0.125mg PO Daily -Dofetilidie 250mcg PO Daily -Cardiology consult placed Endocrine: History of IDDM -Accuchecks TIDAC/HS -Novolog SSI Urology: History of BPH. -Flomax Diet - Regular Diet DVT PPx - on anticoagulation Code Status - FULL CODE Problem List: 1. Bronchitis Pain Ratin Pain Location: None Pain Goal: Remain pain free Pain Plan: As noted in plan Tomorrow's Labs & Rationales: CBC ICU CXR MARY MUJICA MD 02/29/16 1118: Attending MD Review Statement Attending Statement Attending MD Statement: examined this patient, discuss w/resident/PA/[employer] AND F[employer] PACKER, agreed w/resident/PA/[employer] AND FILL PACKER, reviewed EMR data (avail), discussed with nursing, discussed with case mgmt, reviewed images, amended to note Attending Assessment/Plan: Patient seen and examined, overall feeling better but not back to baseline yet. Still having some difficulty breathing. Still running low grade temps. Vital Signs Date Time Temp Pulse Resp B/P Pulse O2 O2 Flow FiO2 Ox Delivery Rate 02/28 1023 Nasal 2.0L Cannula 02/28 0943 79 110/62 02/28 0943 79 110/62 02/28 0800 Nasal 2.0L Cannula 02/28 0800 99.1 69 20 110/62 96 Nasal 2.0L Cannula 02/28 0000 95 Nasal 2.0L Cannula 02/27 2325 96.9 66 20 96/62 95 Nasal 2.0L Cannula 02/27 2134 80 104/58 02/27 2121 95 Nasal 2.0L Cannula 02/27 2000 Nasal 2.0L Cannula 02/27 1999 97.9 83 21 102/68 02/27 1854 97.9 106/64 02/27 1636 81 102/64 02/27 1600 96 Nasal 2.0L Cannula 02/27 1600 97.9 80 22 102/64 96 Nasal 2.0L Cannula 02/27 1130 95 Nasal 2.0L Cannula 02/27 1124 Nasal 2.0L Cannula on exam; aox3, nad. cv; s1,s2 rrr. resp; mild scattered rhonchi. abd; soft, nt, bs+ ext; trace edama Laboratory Tests 02/28 Chemistry Sodium (137 - 145 mmol/L) 137 Potassium (3.5 - 5.1 mmol/L) 4.0 Chloride (98 - 107 mmol/L) 97 L Carbon Dioxide (22 - 30 mmol/L) 33 H Anion Gap (5 - 16) 7 BUN (9 - 20 mg/dL) 33 H Creatinine (0.7 - 1.2 mg/dL) 1.6 H Estimated GFR (>60 ml/min) 41 L Glucose (65 - 99 mg/dL) 202 H Calcium (8.4 - 10.2 mg/dL) 7.7 L Phosphorus (2.5 - 4.5 mg/dL) 4.7 H Magnesium (1.6 - 2.3 mg/dL) 1.8 Total Bilirubin (0.2 - 1.3 mg/dL) 0.6 AST (17 - 59 U/L) 18 ALT (21 - 72 U/L) 23 Troponin I (<0.11 ng/ml) 0.27 *H 0.40 *H Albumin (3.5 - 5.0 g/dL) 3.0 L Hematology CBC w Diff NO MAN DIFF REQ WBC (4.8 - 10.8 /CUMM) 9.0 RBC (4.70 - 6.10 /CUMM) 3.68 L Hgb (14.0 - 18.0 G/DL) 10.8 L Hct (42 - 52 %) 33.3 L MCV (80.0 - 94.0 FL) 90.4 MCH (27.0 - 31.0 PG) 29.2 RDW (11.5 - 14.5 %) 15.0 H Plt Count (130 - 400 /CUMM) 155 MPV (7.4 - 10.4 FL) 8.9 Gran % (42.2 - 75.2 %) 75.1 Lymphocytes % (20.5 - 51.1 %) 16.4 L Monocytes % (1.7 - 9.3 %) 7.8 Eosinophils % (0 - 5 %) 0.5 Basophils % (0.0 - 2.0 %) 0.2 Absolute Granulocytes (1.4 - 6.5 /CUMM) 6.8 H Absolute Lymphocytes (1.2 - 3.4 /CUMM) 1.5 Absolute Monocytes (0.10 - 0.60 /CUMM) 0.7 H Absolute Eosinophils (0.0 - 0.7 /CUMM) 0 Absolute Basophils (0.0 - 0.2 /CUMM) 0 PUBS MCHC (33.0 - 37.0 G/DL) 32.3 L 02/27 02/27 02/27 1620 1400 1400 Chemistry Sodium (137 - 145 mmol/L) 138 Potassium (3.5 - 5.1 mmol/L) 3.6 Chloride (98 - 107 mmol/L) 94 L Carbon Dioxide (22 - 30 mmol/L) 35 H Anion Gap (5 - 16) 9 BUN (9 - 20 mg/dL) 23 H Creatinine (0.7 - 1.2 mg/dL) 1.2 Estimated GFR (>60 ml/min) 57 L BUN/Creatinine Ratio (7 - 25 %) 19.2 Troponin I (<0.11 ng/ml) Cancelled 0.47 *H Hematology CBC w Diff NO MAN DIFF REQ WBC (4.8 - 10.8 /CUMM) 13.5 H RBC (4.70 - 6.10 /CUMM) 3.88 L Hgb (14.0 - 18.0 G/DL) 11.4 L Hct (42 - 52 %) 35.0 L MCV (80.0 - 94.0 FL) 90.2 MCH (27.0 - 31.0 PG) 29.4 RDW (11.5 - 14.5 %) 15.1 H Plt Count (130 - 400 /CUMM) 164 MPV (7.4 - 10.4 FL) 9.1 Gran % (42.2 - 75.2 %) 81.6 H Lymphocytes % (20.5 - 51.1 %) 10.5 L Monocytes % (1.7 - 9.3 %) 7.6 Eosinophils % (0 - 5 %) 0.1 Basophils % (0.0 - 2.0 %) 0.2 Absolute Granulocytes (1.4 - 6.5 /CUMM) 11.0 H Absolute Lymphocytes (1.2 - 3.4 /CUMM) 1.4 Absolute Monocytes (0.10 - 0.60 /CUMM) 1.0 H Absolute Eosinophils (0.0 - 0.7 /CUMM) 0 Absolute Basophils (0.0 - 0.2 /CUMM) 0 PUBS MCHC (33.0 - 37.0 G/DL) 32.6 L A/P; 85 y/o M with pmh sig for atrial fibrillation on eliquis, AICD, pacemaker, HLD, HTN, BPH, NIDDM, admitted with fever cough and shortness of breath likely secondary to possible pneumonia as well as influenza positive. Patient also has high troponins likely secondary to demand ischemia. Today creatinine bump up patient has mild acute renal failure likely secondary to prerenal azotemia. Continue antibiotics and Tamiflu for now. Follow-up on cultures. Unfortunately he has received 2 doses of Lasix and lisinopril he already knew morning. Please hold for loose stool for tomorrow unless creatinine improves to baseline. Please hydrate him gently with 1 bag of IV fluids. Echocardiogram results reviewed. Cardiology evaluation pending. Troponins have trended down. Continue aspirin, beta juany and other cardiac medications. DVT prophylaxis:ELiquis.
--- NOTE | 2016-02-29 14:43 | Cons- Cardiology ---
General Information and HPI Consulting Request Date of Consult: 02/29/16 Requested By: KEILA LUCERO MD Reason for Consult: Elevated troponin History of Present Illness: The patient is an 85-year-old male who is followed in the office by Dr. Thompson with history of atrial fibrillation, nonsustained ventricle tachycardia, nonischemic cardiomyopathy with improved left ventricular function, ICD, diabetes mellitus. He presented to the emergency department with complaint of cough and shortness of breath for the past 3 days. He was admitted for influenza infection and possible pneumonia. He is noted to have a positive troponin. He denies any chest discomfort. He reports a cough with associated shortness of breath which is worse with lying flat. No syncope. No lightheadedness or dizziness. No nausea or vomiting. Allergies/Medications Allergies: Coded Allergies: NO KNOWN ALLERGIES (12/27/15) Home Med List: Apixaban (Eliquis) 5 MG TABLET 1 TAB PO BID BLOOD THINNER (Reported) Carvedilol 12.5 MG TABLET 1 TAB PO BID HEART (Reported) Digoxin 0.125 MG TAB 1 TAB PO DAILY CARDIAC (Reported) Dofetilide (Tikosyn) 250 MCG CAPSULE 1 CAP PO DAILY HEART (Reported) Finasteride 5 MG TABLET 5 MG PO DAILY BPH (Reported) Furosemide 40 MG TABLET 1 TAB PO DAILY CHF (Reported) Glipizide 10 MG TABLET 1 TAB PO DAILY NIDDM (Reported) Lisinopril 20 MG TABLET 20 MG PO DAILY HTN (Reported) Magnesium Oxide 400 MG TABLET 1 TAB PO BID CARDIAC (Reported) METFORMIN HCL (Metformin) 850 MG TABLET 850 MG PO BID NIDDM (Reported) Ondansetron (Zofran Odt) 4 MG TAB.RAPDIS 1 TAB SL TID PRN NAUSEA Pravastatin Sodium 40 MG TABLET 40 MG PO DAILY GI (Reported) Tamsulosin HCl (Unknown Strength) CAP.ER.24H (Unknown Dose) PO AD ( Reported) Current Medications: Current Medications Sig/Constance Start time Last Medication Dose Route Stop Time Status Admin Acetaminophen 650 MG Q6P PRN 02/27 0500 AC PO Albuterol Sulfate 3 ML BID 02/27 2200 AC 02/28 INH 1021 Apixaban 5 MG BID 02/27 1000 AC 02/28 PO 0940 Aspirin 81 MG DAILY 02/28 1000 AC 02/28 PO 0940 Atorvastatin Calcium 40 MG 1700 02/27 1015 AC 02/27 PO 1636 Carvedilol 12.5 MG BID 02/27 1000 AC 02/28 PO 0943 Ceftriaxone Sodium 1,000 MG 1800 02/27 1800 AC 02/27 IV 1841 Digoxin 0.125 MG 1700 02/27 1700 AC 02/27 PO 1636 Dofetilide 250 MCG DAILY 02/27 1000 AC 02/28 PO 0940 Doxycycline Hyclate 100 MG Q12H 02/27 1600 AC 02/28 Sodium Chloride 100 ML IV 0407 Finasteride 5 MG DAILY 02/27 1000 AC 02/28 PO 0940 Furosemide 40 MG DAILY 02/27 1000 DC 02/28 PO 0940 Guaifenesin 600 MG Q12 02/27 1000 AC 02/28 PO 0940 Insulin Aspart 0 TIDAC 02/27 0800 AC 02/27 SC 1152 Lisinopril 20 MG DAILY 02/27 1000 DC 02/28 PO 0943 Oseltamivir Phosphate 75 MG BID 02/27 1527 AC 02/28 PO 03/03 1526 0940 Potassium Chloride 40 MEQ ONCE ONE 02/27 1800 DC 02/27 PO 02/27 1801 1840 Sodium Chloride 1,000 ML ONCE ONE 02/28 1100 AC 02/28 IV 03/01 0019 1104 Review of Systems Review of Systems: No rash. No tremor. No melena. No hemoptysis. No hematemesis. All other systems were reviewed, and were noted to be negative. Past History Travel History Traveled to [place] past 21 day No Medical History Blood Transfusion Hx: No Neurological: NONE EENT: cataracts Cardiovascular: AFIB, hypertension, hyperlipidemia Gastrointestinal: lower GI bleed, angiodysplasia sp cauterization Renal: benign prost hyperplasia Endocrine: diabetes Surgical History Surgical History: non-contributory Family History Relations & Conditions If Any: BROTHER FH: arrhythmia BROTHER Tumor FATHER FH: liver disease Psychosocial History Where Do You Live? Home Who Do You Live With? spouse Services at Home: None Primary Language: Lao Smoking Status: Former Smoker ETOH Use: occasional use Illicit Drug Use: denies illicit drug use Living Will? no Functional Ability ADLs Independent: dressing, eating, toileting, bathing. Ambulation: cane Exam & Diagnostic Data Vital Signs and I&O Vital Signs Date Time Temp Pulse Resp B/P Pulse O2 O2 Flow FiO2 Ox Delivery Rate 02/28 1023 Nasal 2.0L Cannula 02/28 0943 79 110/62 02/28 0943 79 110/62 02/28 0800 Nasal 2.0L Cannula 02/28 0800 99.1 69 20 110/62 96 Nasal 2.0L Cannula 02/28 0000 95 Nasal 2.0L Cannula 02/27 2325 96.9 66 20 96/62 95 Nasal 2.0L Cannula 02/27 2134 80 104/58 02/27 2121 95 Nasal 2.0L Cannula 02/27 1999 Nasal 2.0L Cannula 02/27 1999 97.9 83 21 102/68 02/27 1854 97.9 106/64 02/27 1636 81 102/64 02/27 1600 96 Nasal 2.0L Cannula 02/27 1600 97.9 80 22 102/64 96 Nasal 2.0L Cannula Intake & Output 02/28 1600 02/28 0800 02/28 0000 02/27 1600 02/27 0800 02/27 0000 Intake Total 2382 250 360 400 0 Output Total 400 175 300 450 Balance 1982 75 60 -50 0 Intake, IV 222 130 0 Intake, Oral 2160 120 360 400 0 Number 0 0 0 Bowel Movements Output, Urine 400 175 300 450 Patient 195 lb Weight Physical Exam: Gen: The patient is in no acute distress HEENT: Normal nose, ears, and oropharynx. Pupils equal bilaterally. Conjunctiva normal. Neck: Supple with no JVD, no masses, and no thyromegaly Lungs: Clear to auscultation with normal respiratory effort Heart: RRR, S1, S2, 1/6 systolic murmur. No peripheral edema, 2+ pulses in the lower extremities bilaterally Abdomen: Soft, nontender, no masses. No hepatomegaly. No splenomegaly Extremities: No clubbing or cyanosis. Normal muscle strength in the upper and lower extremities Skin: Normal skin turgor with no skin ulcers or lesions noted. Neuro: Cranial nerves intact. Sensation intact Psych: Alert and oriented 3 with appropriate affect Labs/Rajinder Results: Laboratory Tests 02/28 Chemistry Sodium (137 - 145 mmol/L) 137 Potassium (3.5 - 5.1 mmol/L) 4.0 Chloride (98 - 107 mmol/L) 97 L Carbon Dioxide (22 - 30 mmol/L) 33 H Anion Gap (5 - 16) 7 BUN (9 - 20 mg/dL) 33 H Creatinine (0.7 - 1.2 mg/dL) 1.6 H Estimated GFR (>60 ml/min) 41 L Glucose (65 - 99 mg/dL) 202 H Calcium (8.4 - 10.2 mg/dL) 7.7 L Phosphorus (2.5 - 4.5 mg/dL) 4.7 H Magnesium (1.6 - 2.3 mg/dL) 1.8 Total Bilirubin (0.2 - 1.3 mg/dL) 0.6 AST (17 - 59 U/L) 18 ALT (21 - 72 U/L) 23 Troponin I (<0.11 ng/ml) 0.27 *H 0.40 *H Albumin (3.5 - 5.0 g/dL) 3.0 L Hematology CBC w Diff NO MAN DIFF REQ WBC (4.8 - 10.8 /CUMM) 9.0 RBC (4.70 - 6.10 /CUMM) 3.68 L Hgb (14.0 - 18.0 G/DL) 10.8 L Hct (42 - 52 %) 33.3 L MCV (80.0 - 94.0 FL) 90.4 MCH (27.0 - 31.0 PG) 29.2 RDW (11.5 - 14.5 %) 15.0 H Plt Count (130 - 400 /CUMM) 155 MPV (7.4 - 10.4 FL) 8.9 Gran % (42.2 - 75.2 %) 75.1 Lymphocytes % (20.5 - 51.1 %) 16.4 L Monocytes % (1.7 - 9.3 %) 7.8 Eosinophils % (0 - 5 %) 0.5 Basophils % (0.0 - 2.0 %) 0.2 Absolute Granulocytes (1.4 - 6.5 /CUMM) 6.8 H Absolute Lymphocytes (1.2 - 3.4 /CUMM) 1.5 Absolute Monocytes (0.10 - 0.60 /CUMM) 0.7 H Absolute Eosinophils (0.0 - 0.7 /CUMM) 0 Absolute Basophils (0.0 - 0.2 /CUMM) 0 PUBS MCHC (33.0 - 37.0 G/DL) 32.3 L 02/27 02/27 02/27 1620 1400 1400 Chemistry Sodium (137 - 145 mmol/L) 138 Potassium (3.5 - 5.1 mmol/L) 3.6 Chloride (98 - 107 mmol/L) 94 L Carbon Dioxide (22 - 30 mmol/L) 35 H Anion Gap (5 - 16) 9 BUN (9 - 20 mg/dL) 23 H Creatinine (0.7 - 1.2 mg/dL) 1.2 Estimated GFR (>60 ml/min) 57 L BUN/Creatinine Ratio (7 - 25 %) 19.2 Troponin I (<0.11 ng/ml) Cancelled 0.47 *H Hematology CBC w Diff NO MAN DIFF REQ WBC (4.8 - 10.8 /CUMM) 13.5 H RBC (4.70 - 6.10 /CUMM) 3.88 L Hgb (14.0 - 18.0 G/DL) 11.4 L Hct (42 - 52 %) 35.0 L MCV (80.0 - 94.0 FL) 90.2 MCH (27.0 - 31.0 PG) 29.4 RDW (11.5 - 14.5 %) 15.1 H Plt Count (130 - 400 /CUMM) 164 MPV (7.4 - 10.4 FL) 9.1 Gran % (42.2 - 75.2 %) 81.6 H Lymphocytes % (20.5 - 51.1 %) 10.5 L Monocytes % (1.7 - 9.3 %) 7.6 Eosinophils % (0 - 5 %) 0.1 Basophils % (0.0 - 2.0 %) 0.2 Absolute Granulocytes (1.4 - 6.5 /CUMM) 11.0 H Absolute Lymphocytes (1.2 - 3.4 /CUMM) 1.4 Absolute Monocytes (0.10 - 0.60 /CUMM) 1.0 H Absolute Eosinophils (0.0 - 0.7 /CUMM) 0 Absolute Basophils (0.0 - 0.2 /CUMM) 0 PUBS MCHC (33.0 - 37.0 G/DL) 32.6 L 02/27 02/27 02/27 1100 0745 0125 Chemistry Sodium (137 - 145 mmol/L) 137 Potassium (3.5 - 5.1 mmol/L) 4.1 Chloride (98 - 107 mmol/L) 90 L Carbon Dioxide (22 - 30 mmol/L) 32 H Anion Gap (5 - 16) 15 BUN (9 - 20 mg/dL) 18 Creatinine (0.7 - 1.2 mg/dL) 0.9 Estimated GFR (>60 ml/min) > 60 BUN/Creatinine Ratio (7 - 25 %) 20.0 Glucose (65 - 99 mg/dL) 218 H Calcium (8.4 - 10.2 mg/dL) 8.4 Magnesium (1.6 - 2.3 mg/dL) 1.6 Total Bilirubin (0.2 - 1.3 mg/dL) 1.0 AST (17 - 59 U/L) 24 ALT (21 - 72 U/L) 22 Alkaline Phosphatase (< 127 U/L) 88 Troponin I (<0.11 ng/ml) 0.34 *H 0.06 [id number] Pept (<125 pg/mL) 723 H Total Protein (6.3 - 8.2 g/dL) 7.3 Albumin (3.5 - 5.0 g/dL) 3.7 Globulin (1.9 - 4.2 gm/dL) 3.6 Albumin/Globulin Ratio (1.1 - 2.2 %) 1.0 L Hematology CBC w Diff NO MAN DIFF REQ WBC (4.8 - 10.8 /CUMM) 13.4 H RBC (4.70 - 6.10 /CUMM) 4.32 L Hgb (14.0 - 18.0 G/DL) 12.7 L Hct (42 - 52 %) 38.8 L MCV (80.0 - 94.0 FL) 89.7 MCH (27.0 - 31.0 PG) 29.4 RDW (11.5 - 14.5 %) 15.1 H Plt Count (130 - 400 /CUMM) 188 MPV (7.4 - 10.4 FL) 9.5 Gran % (42.2 - 75.2 %) 86.1 H Lymphocytes % (20.5 - 51.1 %) 8.6 L Monocytes % (1.7 - 9.3 %) 4.8 Eosinophils % (0 - 5 %) 0.3 Basophils % (0.0 - 2.0 %) 0.2 Absolute Granulocytes (1.4 - 6.5 /CUMM) 11.5 H Absolute Lymphocytes (1.2 - 3.4 /CUMM) 1.1 L Absolute Monocytes (0.10 - 0.60 /CUMM) 0.6 Absolute Eosinophils (0.0 - 0.7 /CUMM) 0 Absolute Basophils (0.0 - 0.2 /CUMM) 0 PUBS MCHC (33.0 - 37.0 G/DL) 32.8 L Serology Virus Culture Pending Toxicology Digoxin (0.8 - 2.0 ng/mL) < 0.4 L Diagnostic Data EKG Results EKG tracing is independently reviewed, and reveals atrial and ventricular sequential pacing at a rate of 80 CXR Results No focal consolidation. Questionable trace pleural effusions. Other Results Echocardiogram: 1. This was a technically difficult examination. 2. MOderate aortic sclerosis is present in a trileaflet aortic valve with no valvular stenosis or insufficiency. 3. Mitral leaflet thickening is present with mild anular calcification and minimal to mild mitral insufficiency with mild to moderate left atrial enlargement. 4. There is no pericardial fluid detected. 5. The left ventricular chamber is mildly dilated. There is localized inferoposterior hypokinesia with an ejection fraction of approximately 50-55%. MIld eccentric hypertrophy is present. 6. The right heart structures were not optimally visualized. Mild tricuspid and pulmonic insufficiency are present with no evidence of pulmonary hypertension. 7. Pacemaker wires are present in the right heart chambers. Assessment/Plan Assessment/Plan Assessment: Patient is a 85-year-old male with history of nonischemic cardiomyopathy with recovery of ejection fraction, defibrillator, atrial fibrillation resulting with cough, fever, shortness of breath. He has tested positive for influenza and is admitted for possible pneumonia. He is noted to have mild troponin elevation, which is most likely secondary to demand ischemia. He denies any chest discomfort. He is noted to have acute kidney disease. Recommendations: * Agree with antiviral and antibiotic therapy as per the medical service * Continue carvedilol * Continue aspirin * Lisinopril is on hold for acute kidney injury * Since the positive troponin likely represents demand ischemia secondary to infection, we will hold off for now on cardiac catheterization or other inpatient ischemic workup. Possible nuclear stress test as an outpatient to rule out ischemia. Consult Acknowledgment - Thank you for your consult request.
[2016-02-29 16:00] VITALS: BP 110/60
--- NOTE | 2016-02-29 16:58 | NUR ---
pt had a 16 beat run of v-tach md woods and md machuca made aware. pt to get 400mg po mag replacement
--- NOTE | 2016-02-29 20:45 | NUR ---
RECEIVED REPORT. INTRODUCED SELF TO PT. PT AWAKE AND ALERT. DENIES PAIN. NS INFUSING. PT ON 2 L NC. CALLED TO THE ROOM. PT C/O HEARTBURN. "I THINK IT'S FROM THE PORK GRAVY". ORDER FOR TUMS OBTAINED AND GIVEN TO PT
[2016-03-01] VITALS: BP 110/60
--- NOTE | 2016-03-01 00:32 | NUR ---
PATIENT RECEIVED ALERT AND ORIENTED X3, SKIN PINK, WARM AND DRY,ELECTRICIAN CHIEF PACED RHYTHYM WITHOUT ECTOPY, PATIENT NOTED TO BE SOB ON EXERTION- O2 SAT 97% ON 2L/MIN O2 VIA NC, EXPIRATORY WHEEZES AND SCATTERED RHONCHI NOTED, PATIENT HAS NONPRODUCTIVE COUGH- RT NOTIFIED AND TO GIVE RESPIRATORY TREATMENT, ABDOMEN SOFT, +BS, VOIDING CLEAR YELLOW URINE WITHOUT DIFFICULTY- ONE LITER OF NS CONTINUES TO INFUSE AT 75 ML/HR ORDERED
--- NOTE | 2016-03-01 00:55 | NUR ---
PATIENT STATES THAT HE "FEELS BETTER" AFTER RESPIRATORY TREATMENT, SOME WHEEZING PERSISTS BUT CONSTANT NONPRODUCTIVE COUGH HAS STOPPED
[2016-03-01 05:00] VITALS: BP 108/60
[2016-03-01 05:40] LABS: ABSOLUTE BASOPHIL COUNT 0 /CUMM (0.0-0.2); ABSOLUTE EOSINOPHIL COUNT 0.1 /CUMM (0.0-0.7); ABSOLUTE GRANULOCYTE CT 4.5 /CUMM (1.4-6.5); ABSOLUTE LYMPH COUNT 1.4 /CUMM (1.2-3.4); ABSOLUTE MONOCYTE COUNT 0.6 /CUMM (0.10-0.60); BASOPHIL % 0.3 % (0.0-2.0); EOSINOPHIL % 1.1 % (0-5); GRANULOCYTE % 67.4 % (42.2-75.2); HEMATOCRIT 32.3 % (42-52); MEAN CORPUSCULAR HGB 29.4 PG (27.0-31.0); MEAN CORPUSCULAR HGB CONC 32.6 G/DL (33.0-37.0); MEAN CORPUSCULAR VOLUME 90.3 FL (80.0-94.0); MEAN PLATELET VOLUME 8.6 FL (7.4-10.4); PLATELET COUNT 155 /CUMM (130-400); RBC DISTRIBUTION WIDTH 15.2 % (11.5-14.5); RED BLOOD CELL CT 3.57 /CUMM (4.70-6.10); WHITE BLOOD CELL COUNT 6.6 /CUMM (4.8-10.8)
--- NOTE | 2016-03-01 05:49 | NUR ---
PATIENT SLEEPING SOUNDLY AT THIS TIME, BREATHE SOUNDS IMPROVED- NO AUDIBLE WHEEZING NOTED, FAINT RHONCHI LEFT UPPER FIELD, PLASTIC SHEETS SUPERVISOR CONTINUES PACED RHYTHYM
[2016-03-01 08:00] VITALS: BP 110/74
--- NOTE | 2016-03-01 09:32 | PN- Housestaff ---
RICHARD MC,KRITHI 03/01/16 0918: Subjective Follow-up For: Influenza Pneumonia Troponin Tele-Events Since Last Visit: At around 4 PM yesterday patient had beats of V. tach. He did not endorse any complaints. Overnight monitor did not show significant aberrant activity. Subjective: Saw patient at bedside this a.m. He was sitting up in bed comfortably eating breakfast. Denied any complaints. Able to converse with me but was preoccupied by eating. Had MAXIMUM TEMPERATURE 100.5 on 8 AM this morning. No elevated temperature recordings after. Review of Systems Constitutional: Denies: diaphoresis, fever, malaise. EENTM: Reports: no symptoms. Cardiovascular: Denies: chest pain, palpitations. Respiratory: Reports: sputum production. Denies: cough, hemoptysis, short of breath. Gastrointestinal: Reports: no symptoms. Genitourinary: Reports: no symptoms. Musculoskeletal: Reports: no symptoms. Objective Last 24 Hrs of Vital Signs/I&O Vital Signs Date Time Temp Pulse Resp B/P Pulse O2 O2 Flow FiO2 Ox Delivery Rate 03/01 0800 96 Nasal 2.0L Cannula 03/01 0800 100.5 84 22 110/74 96 Nasal 2.0L Cannula 03/01 0500 97.9 60 18 108/60 95 Nasal 2.0L Cannula 03/01 0041 96 Nasal 2.0L Cannula 03/01 0000 97 Nasal 2.0L Cannula 03/01 0000 98.4 62 26 110/60 97 Nasal 2.0L Cannula 02/28 2242 98.1 80 20 104/62 02/28 2004 95 Nasal 2.0L Cannula 02/28 1645 79 118/68 02/28 1600 Nasal 2.0L Cannula 02/28 1600 97.7 80 20 110/60 96 Nasal 2.0L Cannula 02/28 1023 Nasal 2.0L Cannula 02/28 0943 79 110/62 02/28 0943 79 110/62 Intake & Output 03/01 1600 03/01 0800 03/01 0000 Intake Total 699 1020 Output Total 525 550 Balance 174 470 Intake, IV 339 500 Intake, Oral 360 520 Number 0 1 Bowel Movements Output, Urine 525 550 Physical Exam General Appearance: Alert, Oriented X3, Cooperative, No Acute Distress Skin: venous stasis skin changes in bilateral lower extremities wrapped in bandages HEENT: Atraumatic, PERRLA, EOMI Neck: Supple Cardiovascular: irregularly irregular Lungs: diffuse crackles and rhonchi present throughout Abdomen: Soft, No Tenderness Neurological: Normal Speech Current Medications: Current Medications Sig/Constance Start time Last Medication Dose Route Stop Time Status Admin Acetaminophen 650 MG Q6P PRN 02/27 0500 AC PO Albuterol Sulfate 3 ML BID 02/27 2200 AC 03/01 INH 0023 Apixaban 5 MG BID 02/27 1000 AC 02/28 PO 2243 Aspirin 81 MG DAILY 02/28 1000 AC 02/28 PO 0940 Atorvastatin Calcium 40 MG 1700 02/27 1015 AC 02/28 PO 1643 Calcium Carbonate 500 MG DAILY PRN 02/28 2045 AC PO Calcium Carbonate 500 MG DAILY PRN 02/28 2015 DC PO Carvedilol 12.5 MG BID 02/27 1000 AC 02/28 PO 2242 Ceftriaxone Sodium 1,000 MG 1800 02/27 1800 AC 02/28 IV 1825 Digoxin 0.125 MG 1700 02/27 1700 AC 02/28 PO 1645 Dofetilide 250 MCG DAILY 02/27 1000 AC 02/28 PO 0940 Doxycycline Hyclate 100 MG Q12H 02/27 1600 AC 03/01 Sodium Chloride 100 ML IV 0340 Finasteride 5 MG DAILY 02/27 1000 AC 02/28 PO 0940 Furosemide 40 MG DAILY 02/27 1000 DC 02/28 PO 0940 Guaifenesin 600 MG Q12 02/27 1000 AC 02/28 PO 2242 Insulin Aspart 0 TIDAC 02/27 0800 AC 03/01 SC 0840 Lisinopril 20 MG DAILY 02/27 1000 DC 02/28 PO 0943 Magnesium Oxide 400 MG ONE ONE 03/01 0845 DC PO 03/01 0846 Magnesium Oxide 400 MG ONE ONE 02/28 1700 DC 02/28 PO 02/28 1701 1825 Oseltamivir Phosphate 75 MG BID 02/27 1527 AC 02/28 PO 03/03 1526 2243 Phosphate 250 MG PC AND AT BEDTIME 03/01 0900 AC PO Sodium Chloride 1,000 ML ONCE ONE 02/28 1100 DC 02/28 IV 03/01 0019 1104 Last 24 Hrs of Lab/Rajinder Results Last 24 Hrs of Labs/Mics: Laboratory Tests 03/01/16 0515: Anion Gap 6, Estimated GFR > 60, Glucose 147 H, Calcium 7.9 L, Phosphorus 3.1, Magnesium 1.8, Total Bilirubin 0.5, AST 18, ALT 25, Albumin 2.9 L, CBC w Diff NO MAN DIFF REQ, RBC 3.57 L, MCV 90.3, MCH 29.4, RDW 15.2 H, MPV 8.6, Gran % 67.4, Lymphocytes % 21.7, Monocytes % 9.5 H, Eosinophils % 1.1, Basophils % 0.3 , Absolute Granulocytes 4.5, Absolute Lymphocytes 1.4, Absolute Monocytes 0.6, Absolute Eosinophils 0.1, Absolute Basophils 0, PUBS MCHC 32.6 L Assessment/Plan Assessment: This is an 85-year-old male with past medical history significant for A. fib on Eliquis, AICD, pacemaker, hyperlipidemia, hypertension, BPH, diabetes, who presented with a chief complaint of cough, fever, chills. He was found to have positive rapid influenza test, chest x-ray suggestive of pneumonia, in addition, he leaked troponins during admission. Patient is clinically improving on the current regiment of intravenous antibiotics and supportive measures. PLAN Respiratory/Infectious Disease: On admission patient had positive rapid influenza test, and exam suspicious for pneumonia. He was started on Tamiflu, ceftriaxone, and doxycycline. Most recent chest x-ray showed questionable trace pleural effusions. This a.m. his white count down to 6.6, he had MAXIMUM TEMPERATURE 100.5 this AM. His lower aspirate culture grew yeast. If patient continues to be afebrile for a total of 24 hours we will consider switching him from IV antibiotics to by mouth Augmentin for a total of 7 days of treatment * TRC/neb * Ceftriaxone 1g IV Daily * Doxycycline 100mg IV Q12H * Tamiflu 75mg PO BID for a total of 5 days * Mucinex 600mg PO Q12H Cardiovascular: History of Atrial Fibrillation on Eliquis, AICD, PM, HLD, HTN. Patient is currently irregularly irregular, last echo in hospital showed EF 50- 55%. Of note, yesterday evening around 4 PM he did have episode of V. tach, patient states he is asymptomatic. Per cardiology he would benefit from stress test outpatient. His mag was 1.8 and phosphorus 3.1 this a.m., both were adequately repleted. * Aspirin 81mg PO Daily * Atorvastatin 40mg PO Daily * Coreg 12.5mg PO BID * Eliquis 5mg PO BID * Digoxin 0.125mg PO Daily * Dofetilidie 250mcg PO Daily * Cardiology consult placed Endocrine: History of IDDM * Accuchecks TIDAC/HS * Novolog SSI Urology: History of BPH. * Flomax Problem List: 1. Pneumonia 2. Bronchitis 3. Diabetes Pain Ratin Pain Location: None Pain Goal: Remain pain free Pain Plan: None Tomorrow's Labs & Rationales: ICU bundle GUANAKO MC,MARY 03/01/16 1219: Attending MD Review Statement Attending Statement Attending MD Statement: examined this patient, discuss w/resident/PA/TRUCK RENTAL MANAGER, agreed w/resident/PA/TRUCK RENTAL MANAGER, reviewed EMR data (avail), discussed with nursing, reviewed images, amended to note Attending Assessment/Plan: Patient seen and examined, feeling overall much better. Less fatigued. Denies any shortness of breath but still requiring oxygen. Vital Signs Date Time Temp Pulse Resp B/P Pulse O2 O2 Flow FiO2 Ox Delivery Rate 03/01 1138 94 Nasal 2.0L Cannula 03/01 0946 81 122/68 03/01 0800 96 Nasal 2.0L Cannula 03/01 0800 100.5 84 22 110/74 96 Nasal 2.0L Cannula 03/01 0500 97.9 60 18 108/60 95 Nasal 2.0L Cannula 03/01 0041 96 Nasal 2.0L Cannula 03/01 0000 97 Nasal 2.0L Cannula 03/01 0000 98.4 62 26 110/60 97 Nasal 2.0L Cannula 02/28 2242 98.1 80 20 104/62 02/28 2004 95 Nasal 2.0L Cannula 02/28 1645 79 118/68 02/28 1600 Nasal 2.0L Cannula 02/28 1600 97.7 80 20 110/60 96 Nasal 2.0L Cannula on exam; aox3, nad. cv; s1,s2, rrr. resp; mild scattered rhonchi abd; soft, nt, bs+ ext; no edema. Laboratory Tests 03/01 0515 Chemistry Sodium (137 - 145 mmol/L) 138 Potassium (3.5 - 5.1 mmol/L) 4.7 Chloride (98 - 107 mmol/L) 99 Carbon Dioxide (22 - 30 mmol/L) 34 H Anion Gap (5 - 16) 6 BUN (9 - 20 mg/dL) 26 H Creatinine (0.7 - 1.2 mg/dL) 1.1 Estimated GFR (>60 ml/min) > 60 Glucose (65 - 99 mg/dL) 147 H Calcium (8.4 - 10.2 mg/dL) 7.9 L Phosphorus (2.5 - 4.5 mg/dL) 3.1 Magnesium (1.6 - 2.3 mg/dL) 1.8 Total Bilirubin (0.2 - 1.3 mg/dL) 0.5 AST (17 - 59 U/L) 18 ALT (21 - 72 U/L) 25 Albumin (3.5 - 5.0 g/dL) 2.9 L Hematology CBC w Diff NO MAN DIFF REQ WBC (4.8 - 10.8 /CUMM) 6.6 RBC (4.70 - 6.10 /CUMM) 3.57 L Hgb (14.0 - 18.0 G/DL) 10.5 L Hct (42 - 52 %) 32.3 L MCV (80.0 - 94.0 FL) 90.3 MCH (27.0 - 31.0 PG) 29.4 RDW (11.5 - 14.5 %) 15.2 H Plt Count (130 - 400 /CUMM) 155 MPV (7.4 - 10.4 FL) 8.6 Gran % (42.2 - 75.2 %) 67.4 Lymphocytes % (20.5 - 51.1 %) 21.7 Monocytes % (1.7 - 9.3 %) 9.5 H Eosinophils % (0 - 5 %) 1.1 Basophils % (0.0 - 2.0 %) 0.3 Absolute Granulocytes (1.4 - 6.5 /CUMM) 4.5 Absolute Lymphocytes (1.2 - 3.4 /CUMM) 1.4 Absolute Monocytes (0.10 - 0.60 /CUMM) 0.6 Absolute Eosinophils (0.0 - 0.7 /CUMM) 0.1 Absolute Basophils (0.0 - 0.2 /CUMM) 0 PUBS MCHC (33.0 - 37.0 G/DL) 32.6 L A/P; 85 y/o M with pmh sig for atrial fibrillation on eliquis, AICD, pacemaker, HLD, HTN, BPH, NIDDM, admitted with fever cough and shortness of breath likely secondary to possible pneumonia as well as influenza positive. Patient also has high troponins likely secondary to demand ischemia. Patient had mild acute kidney injury yesterday secondary to dehydration and prerenal azotemia. After IV hydration creatinine has normalized. Continue current antibiotics but if cultures remained negative and we'll switch to Augmentin for total of seven-day course. Complete 5 day course of Tamiflu. Please make sure that patient's potassium is more than 4 and magnesium is more than 2. He had few beat run of V. tach overnight. Monitor on telemetry for any arrhythmias. Echo shows mild left ventricular dilatation and hypokinetic inferior wall. Ejection fraction is 50-55%. Continue the patient on current cardiac medications. DVT prophylaxis: Eliquis.
--- NOTE | 2016-03-01 09:56 | RADIOLOGY REPORT ---
EXAMINATION: XR PORTABLE CHEST CLINICAL INFORMATION: Hypoxia, tachypnea. COMPARISON: Chest done on 02/28/2016. TECHNIQUE: Portable view of the chest was obtained. FINDINGS: Both lung rangel are symmetrically expanded and appear clear. The cardiomediastinal silhouette is mildly enlarged. AICD device is present, appear intact. There is a calcific nodular density seen projecting over the left lower lung field is inseparable from the adjacent mediastinum, appear unchanged. There is no pleural effusion present. Overall, no significant change. IMPRESSION: No significant change since 02/28/2016.
--- NOTE | 2016-03-01 11:52 | PN- Cardiology ---
Subjective Subjective: Better. Shortness of breath is improving. No chest pain. He was noted to have a 13 beat run of ventricular tachycardia yesterday evening. No lightheadedness or dizziness. No nausea or vomiting. Objective Vital Signs and I&Os Vital Signs Date Time Temp Pulse Resp B/P Pulse O2 O2 Flow FiO2 Ox Delivery Rate 03/01 1138 94 Nasal 2.0L Cannula 03/01 0946 81 122/68 03/01 0800 96 Nasal 2.0L Cannula 03/01 0800 100.5 84 22 110/74 96 Nasal 2.0L Cannula 03/01 0500 97.9 60 18 108/60 95 Nasal 2.0L Cannula 03/01 0041 96 Nasal 2.0L Cannula 03/01 0000 97 Nasal 2.0L Cannula 03/01 0000 98.4 62 26 110/60 97 Nasal 2.0L Cannula 02/28 2242 98.1 80 20 104/62 02/28 2004 95 Nasal 2.0L Cannula 02/28 1645 79 118/68 02/28 1600 Nasal 2.0L Cannula 02/28 1600 97.7 80 20 110/60 96 Nasal 2.0L Cannula Intake & Output 03/01 1600 03/01 0800 03/01 0000 02/28 1600 02/28 0800 02/28 0000 Intake Total 699 1020 2382 250 360 Output Total 525 550 400 175 300 Balance 487 457 4199 75 60 Intake, IV 339 500 222 130 0 Intake, Oral 987 081 9347 120 360 Number 0 1 0 0 0 Bowel Movements Output, Urine 525 550 400 175 300 Physical Exam: Gen: The patient is in no acute distress HEENT: Normal nose, ears, and oropharynx. Pupils equal bilaterally. Conjunctiva normal. Neck: Supple with no JVD, no masses, and no thyromegaly Lungs: Clear to auscultation with normal respiratory effort Heart: RRR, S1, S2, 1/6 systolic murmur. No peripheral edema, 2+ pulses in the lower extremities bilaterally Abdomen: Soft, nontender, no masses. No hepatomegaly. No splenomegaly Extremities: No clubbing or cyanosis. Normal muscle strength in the upper and lower extremities Skin: Normal skin turgor with no skin ulcers or lesions noted. Current Medications: Current Medications Sig/Constance Start time Last Medication Dose Route Stop Time Status Admin Acetaminophen 650 MG Q6P PRN 02/27 0500 AC PO Albuterol Sulfate 3 ML BID 02/27 2200 AC 03/01 INH 1033 Apixaban 5 MG BID 02/27 1000 AC 02/28 PO 2243 Aspirin 81 MG DAILY 02/28 1000 AC 03/01 PO 0947 Atorvastatin Calcium 40 MG 1700 02/27 1015 AC 02/28 PO 1643 Benzonatate 100 MG TID 03/01 1000 AC PO Calcium Carbonate 500 MG DAILY PRN 02/28 2045 AC PO Calcium Carbonate 500 MG DAILY PRN 02/28 2015 DC PO Carvedilol 12.5 MG BID 02/27 1000 AC 03/01 PO 0946 Ceftriaxone Sodium 1,000 MG 1800 02/27 1800 AC 02/28 IV 1825 Digoxin 0.125 MG 1700 02/27 1700 AC 02/28 PO 1645 Dofetilide 250 MCG DAILY 02/27 1000 AC 03/01 PO 0947 Doxycycline Hyclate 100 MG Q12H 02/27 1600 AC 03/01 Sodium Chloride 100 ML IV 0340 Finasteride 5 MG DAILY 02/27 1000 AC 03/01 PO 0947 Guaifenesin 600 MG Q12 02/27 1000 AC 03/01 PO 0947 Insulin Aspart 0 TIDAC 02/27 0800 AC 03/01 SC 0840 Magnesium Oxide 400 MG ONE ONE 03/01 0845 DC 03/01 PO 03/01 0846 0947 Magnesium Oxide 400 MG ONE ONE 02/28 1700 DC 02/28 PO 02/28 1701 1825 Oseltamivir Phosphate 75 MG BID 02/27 1527 AC 03/01 PO 03/03 1526 0947 Phosphate 250 MG PC AND AT BEDTIME 03/01 0900 AC PO Sodium Chloride 1,000 ML ONCE ONE 02/28 1100 DC 02/28 IV 03/01 0019 1104 Results Last 48 Hrs of Labs/Mics: Laboratory Tests 03/01/16 0515: Anion Gap 6, Estimated GFR > 60, Glucose 147 H, Calcium 7.9 L, Phosphorus 3.1, Magnesium 1.8, Total Bilirubin 0.5, AST 18, ALT 25, Albumin 2.9 L, CBC w Diff NO MAN DIFF REQ, RBC 3.57 L, MCV 90.3, MCH 29.4, RDW 15.2 H, MPV 8.6, Gran % 67.4, Lymphocytes % 21.7, Monocytes % 9.5 H, Eosinophils % 1.1, Basophils % 0.3 , Absolute Granulocytes 4.5, Absolute Lymphocytes 1.4, Absolute Monocytes 0.6, Absolute Eosinophils 0.1, Absolute Basophils 0, PUBS MCHC 32.6 L 02/29/16 0512: Anion Gap 7, Estimated GFR 41 L, Glucose 202 H, Calcium 7.7 L, Phosphorus 4.7 H, Magnesium 1.8, Total Bilirubin 0.6, AST 18, ALT 23, Troponin I 0.27 *H, Albumin 3.0 L, CBC w Diff NO MAN DIFF REQ, RBC 3.68 L, MCV 90.4, MCH 29.2, RDW 15.0 H, MPV 8.9, Gran % 75.1, Lymphocytes % 16.4 L, Monocytes % 7.8, Eosinophils % 0.5, Basophils % 0.2, Absolute Granulocytes 6.8 H, Absolute Lymphocytes 1.5, Absolute Monocytes 0.7 H, Absolute Eosinophils 0, Absolute Basophils 0, PUBS MCHC 32.3 L 02/28/16 2032: Troponin I 0.40 *H 02/28/16 1620: CBC w Diff NO MAN DIFF REQ, RBC 3.88 L, MCV 90.2, MCH 29.4, RDW 15.1 H, MPV 9.1, Gran % 81.6 H, Lymphocytes % 10.5 L, Monocytes % 7.6, Eosinophils % 0.1, Basophils % 0.2, Absolute Granulocytes 11.0 H, Absolute Lymphocytes 1.4, Absolute Monocytes 1.0 H, Absolute Eosinophils 0, Absolute Basophils 0, PUBS MCHC 32.6 L 02/28/16 1400: Troponin I Cancelled 02/28/16 1400: Anion Gap 9, Estimated GFR 57 L, BUN/Creatinine Ratio 19.2, Troponin I 0.47 *H Microbiology 02/27 2100 LOWER RESP: Respiratory Culture - COMP YEAST 02/27 2100 LOWER RESP: Gram Stain - COMP 02/27 1999 URINE ROUT: Legionella Antigen - COMP 02/27 1999 URINE ROUT: Streptococcus pneumoniae Antigen (M - COMP Recent Imaging Studies: Chest x-ray: No significant change since 02/28/2016. Echocardiogram 02/27/15: 1. This was a technically difficult examination. 2. MOderate aortic sclerosis is present in a trileaflet aortic valve with no valvular stenosis or insufficiency. 3. Mitral leaflet thickening is present with mild anular calcification and minimal to mild mitral insufficiency with mild to moderate left atrial enlargement. 4. There is no pericardial fluid detected. 5. The left ventricular chamber is mildly dilated. There is localized inferoposterior hypokinesia with an ejection fraction of approximately 50-55%. MIld eccentric hypertrophy is present. 6. The right heart structures were not optimally visualized. Mild tricuspid and pulmonic insufficiency are present with no evidence of pulmonary hypertension. 7. Pacemaker wires are present in the right heart chambers. Assessment/Plan Assessment/Plan 1. Atrial fibrillation 2. History of nonischemic cardiomyopathy with recovery of ejection fraction 3. Defibrillator in place 4. Nonsustained to her tachycardia 5. Influenza infection, possible pneumonia 6. Mild troponin elevation, likely secondary to demand ischemia Recommendations: * Antibiotic and antiviral therapy as per the medical service * Continue current cardiac medications. * Continue to monitor on telemetry for further arrhythmias Continue telemetry? Yes
[2016-03-01 16:00] VITALS: BP 120/70
[2016-03-02] VITALS: BP 120/60
--- NOTE | 2016-03-02 01:41 | NUR ---
PATIENT RECEIVED ALERT AND ORIENTED X3, DENIES ANY C/O DISCOMFORT AT THIS TIME, SKIN PINK, WARM AND DRY, ENROBER PACED RHYTHYM, O2 AT 2L/MIN VIA NC- O2 SAT 96%, BREATHE SOUNDS COARSE BUT CLEAR THIS PM, NO AUDIBLE CRACKLES/WHEEZES, ABDOMEN SOFT, +BS, VOIDING CLEAR YELLOW UO WITHOUT DIFFICULTY, PATIENT C/O INABILITY TO SLEEP IN BED- OOB TO MAREK-CHAIR WITH ASSIST, SETTLED FOR SLEEP, CALL LIGHT WITHIN REACH
--- NOTE | 2016-03-02 03:14 | NUR ---
PATIENT SLEEPING SOUNDLY, SQUILGEER SINUS WITH FIRST DEGREE AVB, CO .28, HEART RATE 60'S TO 70/MIN
--- NOTE | 2016-03-02 05:49 | NUR ---
COUGHING AND EXPECTORATING WHITISH SECRETIONS, HAD REMOVED NC AND O2 SAT DECERASED TO 84%- NC REPLACED, RESPIRATORY TREATMENT BY RT TO AID IN EXPECTORATION OF SECRETIONS- O2 SAT NOW 97%, NO CHANGES IN STATUS NOTED OVERNIGHT, TEMPERATURE 98.1 THIS AM, AWAITING AM MD ROUNDS
[2016-03-02 05:55] LABS: ABSOLUTE BASOPHIL COUNT 0 /CUMM (0.0-0.2); ABSOLUTE EOSINOPHIL COUNT 0.1 /CUMM (0.0-0.7); ABSOLUTE GRANULOCYTE CT 4.5 /CUMM (1.4-6.5); ABSOLUTE LYMPH COUNT 1.6 /CUMM (1.2-3.4); ABSOLUTE MONOCYTE COUNT 0.6 /CUMM (0.10-0.60); BASOPHIL % 0.4 % (0.0-2.0); EOSINOPHIL % 0.9 % (0-5); GRANULOCYTE % 65.9 % (42.2-75.2); HEMATOCRIT 31.8 % (42-52); MEAN CORPUSCULAR HGB 29.3 PG (27.0-31.0); MEAN CORPUSCULAR HGB CONC 32.5 G/DL (33.0-37.0); MEAN CORPUSCULAR VOLUME 90.2 FL (80.0-94.0); MEAN PLATELET VOLUME 9.4 FL (7.4-10.4); PLATELET COUNT 161 /CUMM (130-400); RBC DISTRIBUTION WIDTH 14.6 % (11.5-14.5); RED BLOOD CELL CT 3.52 /CUMM (4.70-6.10); WHITE BLOOD CELL COUNT 6.8 /CUMM (4.8-10.8)
[2016-03-02 08:00] VITALS: BP 132/64
--- NOTE | 2016-03-02 08:24 | PN- Housestaff ---
RICHARD MC,DILLON 03/02/16 0816: Subjective Follow-up For: pna flu Tele-Events Since Last Visit: On the patient reportedly had 2 episodes of 2-3 beat V. tach. Upon further investigation it's unclear whether this actually represent aberrant beats or motion artifact. Pt said he has been asymptomatic the whole night Review of Systems Constitutional: Denies: chills, fever, weakness. EENTM: Reports: no symptoms. Cardiovascular: Denies: chest pain, palpitations. Respiratory: Reports: hemoptysis, sputum production. Denies: short of breath. Gastrointestinal: Reports: no symptoms. Genitourinary: Denies: discharge, frequency. Musculoskeletal: Reports: no symptoms. Skin: Reports: no symptoms. Objective Last 24 Hrs of Vital Signs/I&O Vital Signs Date Time Temp Pulse Resp B/P Pulse O2 O2 Flow FiO2 Ox Delivery Rate 03/02 0500 98.1 62 20 97 Nasal 2.0L Cannula 03/02 0454 98 Nasal 2.0L Cannula 03/02 0000 96 Nasal 2.0L Cannula 03/02 0000 97.4 70 22 120/60 96 Nasal 2.0L Cannula 03/01 2138 84 20 130/70 03/01 1932 97 Nasal 2.0L Cannula 03/01 1637 100.1 73 18 120/70 03/01 1600 95 Nasal 2.0L Cannula 03/01 1600 100.1 73 20 120/70 95 Nasal 2.0L Cannula 03/01 1138 94 Nasal 2.0L Cannula 03/01 0946 81 122/68 Intake & Output 03/02 1600 03/02 0800 03/02 0000 Intake Total 300 820 Output Total 425 1500 Balance -125 -680 Intake, IV 100 Intake, Oral 300 720 Output, Urine 425 1500 Physical Exam General Appearance: Alert, Oriented X3, Cooperative, No Acute Distress Skin: No Rashes, No Breakdown, No Significant Lesion HEENT: Atraumatic, PERRLA Neck: Supple Cardiovascular: irregularly irregular Abdomen: Soft, No Tenderness Neurological: Normal Speech Current Medications: Current Medications Sig/Constance Start time Last Medication Dose Route Stop Time Status Admin Acetaminophen 650 MG Q6P PRN 02/27 0500 AC PO Albuterol Sulfate 3 ML BID 02/27 2200 AC 03/02 INH 0438 Amoxicillin/ 875 MG Q12 01/18 1000 AC Clavulanate Potassium PO Apixaban 5 MG BID 02/27 1000 AC 03/01 PO 2137 Aspirin 81 MG DAILY 02/28 1000 AC 03/01 PO 0947 Atorvastatin Calcium 40 MG 1700 02/27 1015 AC 03/01 PO 1637 Benzonatate 100 MG TID 03/01 1000 AC 03/01 PO 2137 Calcium Carbonate 500 MG DAILY PRN 02/28 2045 AC PO Carvedilol 12.5 MG BID 02/27 1000 AC 03/01 PO 2138 Ceftriaxone Sodium 1,000 MG 1800 02/27 1800 DC 03/01 IV 1838 Digoxin 0.125 MG 1700 02/27 1700 AC 03/01 PO 1637 Dofetilide 250 MCG DAILY 02/27 1000 AC 03/01 PO 0947 Doxycycline Hyclate 100 MG Q12H 02/27 1600 DC 03/02 Sodium Chloride 100 ML IV 0346 Finasteride 5 MG DAILY 02/27 1000 AC 03/01 PO 0947 Guaifenesin 600 MG Q12 02/27 1000 AC 03/01 PO 2137 Insulin Aspart 0 TIDAC 02/27 0800 AC 03/01 SC 1157 Magnesium Oxide 400 MG ONE ONE 03/01 0845 DC 03/01 PO 03/01 0846 0947 Oseltamivir Phosphate 75 MG BID 02/27 1527 AC 03/01 PO 03/03 1526 2137 Phosphate 250 MG PC AND AT BEDTIME 03/01 0900 AC 03/01 PO 2136 Senna 187 MG AT BEDTIME PRN 03/01 1200 AC PO Last 24 Hrs of Lab/Rajinder Results Last 24 Hrs of Labs/Mics: Laboratory Tests 03/02/16 0500: Anion Gap 5, Estimated GFR > 60, Glucose 145 H, Calcium 8.0 L, Phosphorus 2.6, Magnesium 1.8, Total Bilirubin 0.6, AST 16 L, ALT 23, Albumin 2.9 L, CBC w Diff NO MAN DIFF REQ, RBC 3.52 L, MCV 90.2, MCH 29.3, RDW 14.6 H, MPV 9.4, Gran % 65.9, Lymphocytes % 24.0, Monocytes % 8.8, Eosinophils % 0.9, Basophils % 0.4, Absolute Granulocytes 4.5, Absolute Lymphocytes 1.6, Absolute Monocytes 0.6 , Absolute Eosinophils 0.1, Absolute Basophils 0, PUBS MCHC 32.5 L Assessment/Plan Assessment: This is an 85-year-old male with past medical history significant for A. fib on Eliquis, AICD, pacemaker, hyperlipidemia, hypertension, BPH, diabetes, who presented with a chief complaint of cough, fever, chills. He was found to have positive rapid influenza test, chest x-ray suggestive of pneumonia, in addition, he leaked troponins during admission. Patient was admitted to ICU. He is clinically improving on the current regiment of intravenous antibiotics and supportive measures. PLAN Respiratory/Infectious Disease: On admission patient had positive rapid influenza test, and exam suspicious for pneumonia. He was started on Tamiflu, ceftriaxone, and doxycycline. This a.m. his white count down to 6.8, he had MAXIMUM TEMPERATURE 100.1 this AM. His LRC grew yeast. As pt has been afebrile for > 24hrs we will switch from IV to PO abx. Pt de-satted to 84% on RA when returning from the bathroom. He is not on home O2. Will get CXR. Likely discharge tomorrow as trt regimen is currently PO. * TRC/neb * STOP Ceftriaxone 1g IV Daily AND Doxycycline 100mg IV Q12H * Start Augmentin for a total 7 days of treatment with both IV and PO antibiotics. * Tamiflu 75mg PO BID for a total of 5 days * Mucinex 600mg PO Q12H * CXR Cardiovascular: History of Atrial Fibrillation on Eliquis, AICD, PM, HLD, HTN. Patient is currently irregularly irregular, last echo in hospital showed EF 50- 55%. Of note, yesterday evening around 4 PM he did have episode of V. tach, patient states he is asymptomatic. Per cardiology he would benefit from stress test outpatient. * Aspirin 81mg PO Daily * Atorvastatin 40mg PO Daily * Coreg 12.5mg PO BID * Eliquis 5mg PO BID * Digoxin 0.125mg PO Daily * Dofetilidie 250mcg PO Daily * Cardiology consult placed Endocrine: History of IDDM * Accuchecks TIDAC/HS * Novolog SSI Urology: History of BPH. * Flomax Problem List: 1. Pneumonia Pain Ratin Pain Location: none Pain Goal: Remain pain free Pain Plan: none Tomorrow's Labs & Rationales: icu bundle GUANAKO MC,MARY 03/02/16 1021: Attending MD Review Statement Attending Statement Attending MD Statement: examined this patient, discuss w/resident/PA/STEMMING MACHINE OPERATOR, agreed w/resident/PA/STEMMING MACHINE OPERATOR, reviewed EMR data (avail), discussed with nursing, reviewed images, amended to note Attending Assessment/Plan: Patient seen and examined, still not feeling back to baseline yet. Still feels somewhat short of breath and desatted to 84% on room air. He had a low-grade temp overnight. Vital Signs Date Time Temp Pulse Resp B/P Pulse O2 O2 Flow FiO2 Ox Delivery Rate 03/02 0800 98.4 81 20 132/64 93 Nasal 2.0L Cannula 03/02 0500 98.1 62 20 97 Nasal 2.0L Cannula 03/02 0454 98 Nasal 2.0L Cannula 03/02 0000 96 Nasal 2.0L Cannula 03/02 0000 97.4 70 22 120/60 96 Nasal 2.0L Cannula 03/01 2138 84 20 130/70 03/01 1932 97 Nasal 2.0L Cannula 03/01 1637 100.1 73 18 120/70 03/01 1600 95 Nasal 2.0L Cannula 03/01 1600 100.1 73 20 120/70 95 Nasal 2.0L Cannula 03/01 1138 94 Nasal 2.0L Cannula on exam. aox3, nad. cv; s1,s2, rrr. resp; scattered rhonchi. abd; soft, nt, bs+ ext; no edema. Laboratory Tests 03/02 0500 Chemistry Sodium (137 - 145 mmol/L) 139 Potassium (3.5 - 5.1 mmol/L) 4.9 Chloride (98 - 107 mmol/L) 97 L Carbon Dioxide (22 - 30 mmol/L) 38 H Anion Gap (5 - 16) 5 BUN (9 - 20 mg/dL) 18 Creatinine (0.7 - 1.2 mg/dL) 0.8 Estimated GFR (>60 ml/min) > 60 Glucose (65 - 99 mg/dL) 145 H Calcium (8.4 - 10.2 mg/dL) 8.0 L Phosphorus (2.5 - 4.5 mg/dL) 2.6 Magnesium (1.6 - 2.3 mg/dL) 1.8 Total Bilirubin (0.2 - 1.3 mg/dL) 0.6 AST (17 - 59 U/L) 16 L ALT (21 - 72 U/L) 23 Albumin (3.5 - 5.0 g/dL) 2.9 L Hematology CBC w Diff NO MAN DIFF REQ WBC (4.8 - 10.8 /CUMM) 6.8 RBC (4.70 - 6.10 /CUMM) 3.52 L Hgb (14.0 - 18.0 G/DL) 10.3 L Hct (42 - 52 %) 31.8 L MCV (80.0 - 94.0 FL) 90.2 MCH (27.0 - 31.0 PG) 29.3 RDW (11.5 - 14.5 %) 14.6 H Plt Count (130 - 400 /CUMM) 161 MPV (7.4 - 10.4 FL) 9.4 Gran % (42.2 - 75.2 %) 65.9 Lymphocytes % (20.5 - 51.1 %) 24.0 Monocytes % (1.7 - 9.3 %) 8.8 Eosinophils % (0 - 5 %) 0.9 Basophils % (0.0 - 2.0 %) 0.4 Absolute Granulocytes (1.4 - 6.5 /CUMM) 4.5 Absolute Lymphocytes (1.2 - 3.4 /CUMM) 1.6 Absolute Monocytes (0.10 - 0.60 /CUMM) 0.6 Absolute Eosinophils (0.0 - 0.7 /CUMM) 0.1 Absolute Basophils (0.0 - 0.2 /CUMM) 0 PUBS MCHC (33.0 - 37.0 G/DL) 32.5 L A/P; 85 y/o M with pmh sig for atrial fibrillation on eliquis, AICD, pacemaker, HLD, HTN, BPH, NIDDM, admitted with fever cough and shortness of breath likely secondary to possible pneumonia as well as influenza positive. Patient also has high troponins likely secondary to demand ischemia. Patient had mild acute kidney injury yesterday secondary to dehydration and prerenal azotemia. After IV hydration creatinine has normalized. X-switch to oral. Will complete her total of seven-day course. Will complete her total of 5 day course of Tamiflu. Patient is still hypoxic. Encourage incentive spirometry and getting more out of bed to chair as well as ambulation. Please repeat chest x-ray today. Continue all other current medications. Continue TRC nebs. DVT prophylaxis: Eiquis.
[2016-03-02] MEDS ORDERED: AMOX-CLAV 875-1 EACH PO (10:45)
--- NOTE | 2016-03-02 10:54 | Patient Discharge Instructions ---
Discharge Instructions General Discharge Information You were seen/treated for: Pneumonia Flu Watch for these problems: Worsening shortness of breath Fever Special Instructions: 1. Finish your course of antibiotics 2. 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 Follow up with your PCP in one week 4. Diet Continue normal diet: No Recommended Diet: Heart Healthy Activity Full Activity/No Limits: No Activity Self Limited: Yes Acute Coronary Syndrome Inclusion Criteria At DC or during hospital stay patient has or had the following: ACS DIAGNOSIS No Discharge Core Measures Meds if any: Prescribed or Continued at Discharge Meds if any: NOT Prescribed or Continued at Discharge Congestive Heart Failure Inclusion Criteria At DC or during hospital stay patient has or had the following: CHF DIAGNOSIS No Discharge Core Measures Meds if any: Prescribed or Continued at Discharge Meds if any: NOT Prescribed or Continued at Discharge Cerebrovascular accident Inclusion Criteria At DC or during hospital stay patient has or had the following: CVA/TIA Diagnosis No Discharge Core Measures Meds if any: Prescribed or Continued at Discharge Meds if any: NOT Prescribed or Continued at Discharge Venous thromboembolism Inclusion Criteria VTE Diagnosis No VTE Type NONE VTE Confirmed by (Test) NONE Discharge Core Measures - Per Current guidelines, there needs to be overlap - treatment for the first 5 days of Warfarin therapy. - If discharged on Warfarin prior to 5 days of - overlap therapy, the patient will need to be - assessed for post discharge needs including - *Post discharge parental anticoagulation - *Warfarin and/or parental anticoagulation education - *Follow up date to check INR post discharge At least 5 days overlap therapy as Inpatient No Meds if any: Prescribed or Continued at Discharge Note: Overlap Therapy is Warfarin and Anticoagulant Meds if any: NOT Prescribed or Continued at Discharge
--- NOTE | 2016-03-02 11:23 | RADIOLOGY REPORT ---
EXAMINATION: XR PORTABLE CHEST CLINICAL INFORMATION: Hypoxia and tachypnea. Assess for bronchitis versus pneumonia. COMPARISON: Chest x-ray 03/01/2016. TECHNIQUE: A portable AP upright view of the chest was obtained. FINDINGS: There are multiple monitor leads overlying the chest. There is an left chest AICD device with multiple leads which appear intact and unchanged. The lung rangel are well-expanded. The cardiac silhouette is slightly prominent. The aortic arch is calcified and unfolded. There is no focal consolidation. There are trace bilateral pleural effusions. There is a stable nodular density projecting over the left lower lobe. IMPRESSION: 1. There are trace pleural effusions on the current study. 2. There is no focal consolidation.
--- NOTE | 2016-03-02 13:38 | PN- Cardiology ---
Subjective Subjective: Clinically improving. No new issues. Cardiac status stable. Objective Vital Signs and I&Os Vital Signs Date Time Temp Pulse Resp B/P Pulse O2 O2 Flow FiO2 Ox Delivery Rate 03/02 1138 95 Nasal 2.0L Cannula 03/02 1026 81 132/60 03/02 0800 98.4 81 20 132/64 93 Nasal 2.0L Cannula 03/02 0800 93 Nasal 2.0L Cannula 03/02 0500 98.1 62 20 97 Nasal 2.0L Cannula 03/02 0454 98 Nasal 2.0L Cannula 03/02 0000 96 Nasal 2.0L Cannula 03/02 0000 97.4 70 22 120/60 96 Nasal 2.0L Cannula 03/01 2138 84 20 130/70 03/01 1932 97 Nasal 2.0L Cannula 03/01 1637 100.1 73 18 120/70 03/01 1600 95 Nasal 2.0L Cannula 03/01 1600 100.1 73 20 120/70 95 Nasal 2.0L Cannula Intake & Output 03/02 1600 03/02 0800 03/02 0000 03/01 1600 03/01 0800 03/01 0000 Intake Total 300 820 357 753 3356 Output Total 425 1500 350 525 550 Balance -125 -680 300 174 470 Intake, IV 100 339 500 Intake, Oral 300 720 650 360 520 Number 0 1 Bowel Movements Output, Urine 425 1500 350 525 550 Physical Exam: General Appearance: Alert, Oriented X3, Cooperative, No Acute Distress Skin: No Rashes, No Breakdown, No Significant Lesion HEENT: Atraumatic, PERRLA Neck: Supple Cardiovascular: irregularly irregular, S1,S2, 1-2/6 systolic murmur Abdomen: Soft, No Tenderness Neurological: Normal Speech Current Medications: Current Medications Sig/Constance Start time Last Medication Dose Route Stop Time Status Admin Acetaminophen 650 MG Q6P PRN 02/27 0500 AC PO Albuterol Sulfate 3 ML BID 02/27 2200 AC 03/02 INH 1137 Amoxicillin/ 875 MG Q12 03/02 1000 AC 03/02 Clavulanate Potassium PO 1028 Apixaban 5 MG BID 02/27 1000 AC 03/02 PO 1025 Aspirin 81 MG DAILY 02/28 1000 AC 03/02 PO 1026 Atorvastatin Calcium 40 MG 1700 02/27 1015 AC 03/01 PO 1637 Benzonatate 100 MG TID 03/01 1000 AC 03/02 PO 1025 Calcium Carbonate 500 MG DAILY PRN 02/28 2045 AC PO Carvedilol 12.5 MG BID 02/27 1000 AC 03/02 PO 1026 Ceftriaxone Sodium 1,000 MG 1800 02/27 1800 DC 03/01 IV 1838 Digoxin 0.125 MG 1700 02/27 1700 AC 03/01 PO 1637 Dofetilide 250 MCG DAILY 02/27 1000 AC 03/02 PO 1026 Doxycycline Hyclate 100 MG Q12H 02/27 1600 DC 03/02 Sodium Chloride 100 ML IV 0346 Finasteride 5 MG DAILY 02/27 1000 AC 03/02 PO 1026 Guaifenesin 600 MG Q12 02/27 1000 AC 03/02 PO 1026 Insulin Aspart 0 TIDAC 02/27 0800 AC 03/02 SC 1203 Oseltamivir Phosphate 75 MG BID 02/27 1527 AC 03/02 PO 03/03 1526 1027 Phosphate 250 MG PC AND AT BEDTIME 03/01 0900 AC 03/02 PO 1204 Senna 187 MG AT BEDTIME PRN 03/01 1200 AC PO Results Last 48 Hrs of Labs/Mics: Laboratory Tests 03/02/16 0500: Anion Gap 5, Estimated GFR > 60, Glucose 145 H, Calcium 8.0 L, Phosphorus 2.6, Magnesium 1.8, Total Bilirubin 0.6, AST 16 L, ALT 23, Albumin 2.9 L, CBC w Diff NO MAN DIFF REQ, RBC 3.52 L, MCV 90.2, MCH 29.3, RDW 14.6 H, MPV 9.4, Gran % 65.9, Lymphocytes % 24.0, Monocytes % 8.8, Eosinophils % 0.9, Basophils % 0.4, Absolute Granulocytes 4.5, Absolute Lymphocytes 1.6, Absolute Monocytes 0.6 , Absolute Eosinophils 0.1, Absolute Basophils 0, PUBS MCHC 32.5 L 03/01/16 0515: Anion Gap 6, Estimated GFR > 60, Glucose 147 H, Calcium 7.9 L, Phosphorus 3.1, Magnesium 1.8, Total Bilirubin 0.5, AST 18, ALT 25, Albumin 2.9 L, CBC w Diff NO MAN DIFF REQ, RBC 3.57 L, MCV 90.3, MCH 29.4, RDW 15.2 H, MPV 8.6, Gran % 67.4, Lymphocytes % 21.7, Monocytes % 9.5 H, Eosinophils % 1.1, Basophils % 0.3 , Absolute Granulocytes 4.5, Absolute Lymphocytes 1.4, Absolute Monocytes 0.6, Absolute Eosinophils 0.1, Absolute Basophils 0, PUBS MCHC 32.6 L Assessment/Plan Assessment/Plan Assessment/Plan 1. Atrial fibrillation 2. History of nonischemic cardiomyopathy with recovery of ejection fraction 3. Defibrillator in place 4. Nonsustained to her tachycardia 5. Influenza infection, possible pneumonia 6. Mild troponin elevation, likely secondary to demand ischemia Recommendations: -No further episodes of significant arrhythmias -Continue current management -COntinue telemetry until AM Continue telemetry? Yes
[2016-03-02 16:00] VITALS: BP 120/70
--- NOTE | 2016-03-02 22:28 | NUR ---
AVSS.A/OX3.FOLLOW COMMANDS.ZUÑIGA WITH GOOD EFFECT.NO C'O GEN DISCOMFORT.AKIN PO WELL AND VOIDING GOOD UO.DROPLET PRECAUTION MAINTAINS. PLAN OF CARE REVIEWED.
[2016-03-03] VITALS: BP 140/70
[2016-03-03 05:24] LABS: ABSOLUTE BASOPHIL COUNT 0 /CUMM (0.0-0.2); ABSOLUTE EOSINOPHIL COUNT 0.1 /CUMM (0.0-0.7); ABSOLUTE GRANULOCYTE CT 5.5 /CUMM (1.4-6.5); ABSOLUTE LYMPH COUNT 2.1 /CUMM (1.2-3.4); ABSOLUTE MONOCYTE COUNT 0.7 /CUMM (0.10-0.60); BASOPHIL % 0.4 % (0.0-2.0); EOSINOPHIL % 0.9 % (0-5); GRANULOCYTE % 65.2 % (42.2-75.2); HEMATOCRIT 36.3 % (42-52); MEAN CORPUSCULAR HGB CONC 32.1 G/DL (33.0-37.0); MEAN CORPUSCULAR VOLUME 90.4 FL (80.0-94.0); MEAN PLATELET VOLUME 9.1 FL (7.4-10.4); PLATELET COUNT 197 /CUMM (130-400); RBC DISTRIBUTION WIDTH 14.8 % (11.5-14.5); RED BLOOD CELL CT 4.02 /CUMM (4.70-6.10); WHITE BLOOD CELL COUNT 8.4 /CUMM (4.8-10.8)
[2016-03-03 08:00] VITALS: BP 136/70
--- NOTE | 2016-03-03 09:28 | NUR ---
Patient's O2 sat on room air at rest is 87% when ambulating on room air O2 sat ranges between 85-87%. When placed on 2L nc- O2 sat remains stable at 94-96% when ambulating and at rest.
[2016-03-03 09:46] VITALS: BP 138/70
--- NOTE | 2016-03-03 10:36 | PN- Housestaff ---
RICHARD MC,DILLON 03/03/16 1029: Subjective Follow-up For: Upper respiratory infection Influenza Pneumonia Troponins Tele-Events Since Last Visit: Patient had no overnight events on telemetric. Subjective: Patient was sitting in chair at bedside. He was on 2 L nasal cannula, satting comfortably. However we'll remove nasal cannula his O2 sats dropped down to 86 without exertion. Patient denies any worsening of his symptoms, on the contrary , he says he is feeling better every day. He denies any shortness of breath, chest pain, or rhinorrhea. No acute overnight events no acute complaints Review of Systems Constitutional: Denies: chills, fever, weakness. EENTM: Reports: no symptoms. Cardiovascular: Denies: chest pain, palpitations. Respiratory: Reports: sputum production. Denies: cough, short of breath, wheezing. Gastrointestinal: Reports: no symptoms. Genitourinary: Reports: no symptoms. Musculoskeletal: Reports: no symptoms. Objective Last 24 Hrs of Vital Signs/I&O Vital Signs Date Time Temp Pulse Resp B/P Pulse O2 O2 Flow FiO2 Ox Delivery Rate 03/03 0946 81 138/70 03/03 0800 98.4 81 20 136/70 96 Nasal 2.0L Cannula 03/03 0800 96 Nasal 2.0L Cannula 03/03 0000 98.0 64 24 140/70 Nasal 2.0L Cannula 03/03 0000 95 Nasal 2.0L Cannula 03/02 2002 95 Nasal 2.0L Cannula 03/02 1640 82 122/64 03/02 1600 98 Nasal 2.0L Cannula 03/02 1600 98.3 81 22 120/70 98 Nasal 1.0L Cannula 03/02 1138 95 Nasal 2.0L Cannula Intake & Output 03/03 1600 03/03 0800 03/03 0000 Intake Total 200 240 Output Total 400 350 Balance -200 -110 Intake, Oral 200 240 Output, Urine 400 350 Physical Exam General Appearance: Alert, Oriented X3, Cooperative, No Acute Distress Skin: No Significant Lesion HEENT: Atraumatic, PERRLA, EOMI Neck: Supple Cardiovascular: IRREGULARLY IRREGULAR Lungs: PATIENT HAS SOME DECREASED MOVEMENT OF AND LUNGS, HOWEVER HE STANDS MUCH BETTER THAN YESTERDAY. nO WHEEZES, NO RHONCHI, NO RUBS Abdomen: Soft, No Tenderness Neurological: Normal Speech Extremities: No Cyanosis, No Edema Current Medications: Current Medications Sig/Constance Start time Last Medication Dose Route Stop Time Status Admin Acetaminophen 650 MG Q6P PRN 02/27 0500 AC PO Albuterol Sulfate 3 ML BID 02/27 2200 AC 03/03 INH 1226 Amoxicillin/ 875 MG Q12 03/02 1000 AC 03/03 Clavulanate Potassium PO 0947 Apixaban 5 MG BID 02/27 1000 AC 03/03 PO 0946 Aspirin 81 MG DAILY 02/28 1000 AC 03/03 PO 0947 Atorvastatin Calcium 40 MG 1700 02/27 1015 AC 03/02 PO 1641 Benzonatate 100 MG TID 03/01 1000 AC 03/03 PO 0947 Calcium Carbonate 500 MG DAILY PRN 02/28 2045 AC PO Carvedilol 12.5 MG BID 02/27 1000 AC 03/03 PO 0946 Digoxin 0.125 MG 1700 02/27 1700 AC 03/02 PO 1640 Dofetilide 250 MCG DAILY 02/27 1000 AC 03/03 PO 0947 Finasteride 5 MG DAILY 02/27 1000 AC 03/03 PO 0947 Furosemide 20 MG ONCE ONE 03/03 1045 DC 03/03 IV 03/03 1046 1117 Guaifenesin 600 MG Q12 02/27 1000 AC 03/03 PO 0946 Insulin Aspart 0 TIDAC 02/27 0800 AC 03/03 SC 1204 Oseltamivir Phosphate 75 MG BID 02/27 1527 DC 03/03 PO 03/03 1526 0946 Phosphate 250 MG PC AND AT BEDTIME 03/01 0900 AC 03/03 PO 1204 Senna 187 MG AT BEDTIME PRN 03/01 1200 AC PO Last 24 Hrs of Lab/Rajinder Results Last 24 Hrs of Labs/Mics: Laboratory Tests 03/03/16 0838: 03/03/16 0445: RBC 4.02 L, MCV 90.4, MCH 29.0, RDW 14.8 H, MPV 9.1, Gran % 65.2, Lymphocytes % 24.9, Monocytes % 8.6, Eosinophils % 0.9, Basophils % 0.4, Absolute Granulocytes 5.5, Absolute Lymphocytes 2.1, Absolute Monocytes 0.7 H, Absolute Eosinophils 0.1, Absolute Basophils 0, PUBS MCHC 32.1 L 03/03/16 0335: Anion Gap 7, Estimated GFR > 60, Glucose 205 H, Calcium 8.4, Phosphorus 3.4, Magnesium 1.9, Total Bilirubin 0.9, AST 22, ALT 31, Albumin 3.2 L Assessment/Plan Assessment: This is an 85-year-old male with past medical history significant for A. fib on Eliquis, AICD, pacemaker, hyperlipidemia, hypertension, BPH, diabetes, who presented with a chief complaint of cough, fever, chills. He was found to have positive rapid influenza test, chest x-ray suggestive of pneumonia, in addition, he leaked troponins during admission. Patient was admitted to ICU. He is clinically improving on the current regiment of intravenous antibiotics and supportive measures. PLAN Respiratory/Infectious Disease: On admission patient had positive rapid influenza test, and exam suspicious for pneumonia. He was started on Tamiflu, ceftriaxone, and doxycycline. His LRC grew yeast. As pt has been afebrile for > 24hrs we will switch from IV to PO abx. Patient satting around 85 on room air at rest. * TRC/neb * Continue Augmentin for a total 7 days of treatment with both IV and PO antibiotics. * Tamiflu 75mg PO BID for a total of 5 days. Today's last day * Mucinex 600mg PO Q12H * Get chest CT * Home O2 Cardiovascular: History of Atrial Fibrillation on Eliquis, AICD, PM, HLD, HTN. Patient is currently irregularly irregular, last echo in hospital showed EF 50- 55%. Of note, yesterday evening around 4 PM he did have episode of V. tach, patient states he is asymptomatic. Per cardiology he would benefit from stress test outpatient. * Aspirin 81mg PO Daily * Atorvastatin 40mg PO Daily * Coreg 12.5mg PO BID * Eliquis 5mg PO BID * Digoxin 0.125mg PO Daily * Dofetilidie 250mcg PO Daily * Cardiology consult placed Endocrine: History of IDDM * Accuchecks TIDAC/HS * Novolog SSI Urology: History of BPH. * Flomax Problem List: 1. Hypoxia 2. Pneumonia Pain Ratin Pain Location: None Pain Goal: Remain pain free Pain Plan: None Tomorrow's Labs & Rationales: None DVT/Prophylaxis: pharmacological GUANAKO MC,MARY 03/03/16 1138: Attending MD Review Statement Attending Statement Attending MD Statement: examined this patient, discuss w/resident/PA/TERMITE CONTROL TECHNICIAN, agreed w/resident/PA/TERMITE CONTROL TECHNICIAN, reviewed EMR data (avail), discussed with nursing, discussed with case mgmt, amended to note Attending Assessment/Plan: Patient seen and examined, feeling much better overall. Denies any shortness of breath but remains hypoxic at rest at 87%. Vital Signs Date Time Temp Pulse Resp B/P Pulse O2 O2 Flow FiO2 Ox Delivery Rate 03/03 0946 81 138/70 03/03 0800 98.4 81 20 136/70 96 Nasal 2.0L Cannula 03/03 0800 96 Nasal 2.0L Cannula 03/03 0000 98.0 64 24 140/70 Nasal 2.0L Cannula 03/03 0000 95 Nasal 2.0L Cannula 03/02 2002 95 Nasal 2.0L Cannula 03/02 1640 82 122/64 03/02 1600 98 Nasal 2.0L Cannula 03/02 1600 98.3 81 22 120/70 98 Nasal 1.0L Cannula ON EXAM; aox3, nad. cv; s1,s2, rrr. resp; decresaed bs at basis. abd; soft, nt, bs+ ext; no edema, Laboratory Tests 03/03 03/03 03/03 0838 0445 0335 Chemistry Sodium (137 - 145 mmol/L) 140 Potassium (3.5 - 5.1 mmol/L) 4.9 5.3 H Chloride (98 - 107 mmol/L) 98 Carbon Dioxide (22 - 30 mmol/L) 34 H Anion Gap (5 - 16) 7 BUN (9 - 20 mg/dL) 20 Creatinine (0.7 - 1.2 mg/dL) 0.8 Estimated GFR (>60 ml/min) > 60 Glucose (65 - 99 mg/dL) 205 H Calcium (8.4 - 10.2 mg/dL) 8.4 Phosphorus (2.5 - 4.5 mg/dL) 3.4 Magnesium (1.6 - 2.3 mg/dL) 1.9 Total Bilirubin (0.2 - 1.3 mg/dL) 0.9 AST (17 - 59 U/L) 22 ALT (21 - 72 U/L) 31 Albumin (3.5 - 5.0 g/dL) 3.2 L Hematology WBC (4.8 - 10.8 /CUMM) 8.4 RBC (4.70 - 6.10 /CUMM) 4.02 L Hgb (14.0 - 18.0 G/DL) 11.7 L Hct (42 - 52 %) 36.3 L MCV (80.0 - 94.0 FL) 90.4 MCH (27.0 - 31.0 PG) 29.0 RDW (11.5 - 14.5 %) 14.8 H Plt Count (130 - 400 /CUMM) 197 MPV (7.4 - 10.4 FL) 9.1 Gran % (42.2 - 75.2 %) 65.2 Lymphocytes % (20.5 - 51.1 %) 24.9 Monocytes % (1.7 - 9.3 %) 8.6 Eosinophils % (0 - 5 %) 0.9 Basophils % (0.0 - 2.0 %) 0.4 Absolute Granulocytes (1.4 - 6.5 /CUMM) 5.5 Absolute Lymphocytes (1.2 - 3.4 /CUMM) 2.1 Absolute Monocytes (0.10 - 0.60 /CUMM) 0.7 H Absolute Eosinophils (0.0 - 0.7 /CUMM) 0.1 Absolute Basophils (0.0 - 0.2 /CUMM) 0 PUBS MCHC (33.0 - 37.0 G/DL) 32.1 L A/P; 85 y/o M with pmh sig for atrial fibrillation on eliquis, AICD, pacemaker, HLD, HTN, BPH, NIDDM, admitted with fever cough and shortness of breath likely secondary to possible pneumonia as well as influenza positive. Patient also has high troponins likely secondary to demand ischemia. Patient had mild acute kidney injury yesterday secondary to dehydration and prerenal azotemia. After IV hydration creatinine has normalized. The patient takes Lasix at home has not been continued here today to patient having acute kidney injury after his admission. He also received IV fluids.-20 mg of IV Lasix now and then resume his home dose of Lasix. CT chest without contrast is ordered to look for any other acute abnormality. If CT chest comes out negative and patient's O2 sats even further improve then he can be discharged home today. He might need to go home with oxygen. He has completed the course of Tamiflu. Needs 2 more days of antibiotics. Continue all current cardiac medications otherwise. Patient will follow-up with his primary care doctor as well as semaphore operator as oupatient.
--- NOTE | 2016-03-03 12:26 | PN- Cardiology ---
Subjective Subjective: Stable and clinically improving. Awaiting CT result prior to pending discharge Objective Vital Signs and I&Os Vital Signs Date Time Temp Pulse Resp B/P Pulse O2 O2 Flow FiO2 Ox Delivery Rate 03/03 0946 81 138/70 03/03 0800 98.4 81 20 136/70 96 Nasal 2.0L Cannula 03/03 0800 96 Nasal 2.0L Cannula 03/03 0000 98.0 64 24 140/70 Nasal 2.0L Cannula 03/03 0000 95 Nasal 2.0L Cannula 03/02 2002 95 Nasal 2.0L Cannula 03/02 1640 82 122/64 03/02 1600 98 Nasal 2.0L Cannula 03/02 1600 98.3 81 22 120/70 98 Nasal 1.0L Cannula Intake & Output 03/03 1600 03/03 0800 03/03 0000 03/02 1600 03/02 0800 03/02 0000 Intake Total 200 240 750 300 820 Output Total 400 350 650 846 7204 Balance -200 -110 -50 -125 -680 Intake, IV 100 Intake, Oral 200 240 750 300 720 Output, Urine 400 350 185 [id number] [id number] Current Medications: Current Medications Sig/Constance Start time Last Medication Dose Route Stop Time Status Admin Acetaminophen 650 MG Q6P PRN 02/27 0500 AC PO Albuterol Sulfate 3 ML BID 02/27 2200 AC 03/02 INH 1959 Amoxicillin/ 875 MG Q12 03/02 1000 AC 03/03 Clavulanate Potassium PO 0947 Apixaban 5 MG BID 02/27 1000 AC 03/03 PO 0946 Aspirin 81 MG DAILY 02/28 1000 AC 03/03 PO 0947 Atorvastatin Calcium 40 MG 1700 02/27 1015 AC 03/02 PO 1641 Benzonatate 100 MG TID 03/01 1000 AC 03/03 PO 0947 Calcium Carbonate 500 MG DAILY PRN 02/28 2045 AC PO Carvedilol 12.5 MG BID 02/27 1000 AC 03/03 PO 0946 Digoxin 0.125 MG 1700 02/27 1700 AC 03/02 PO 1640 Dofetilide 250 MCG DAILY 02/27 1000 AC 03/03 PO 0947 Finasteride 5 MG DAILY 02/27 1000 AC 03/03 PO 0947 Furosemide 20 MG ONCE ONE 03/03 1045 DC 03/03 IV 03/03 1046 1117 Guaifenesin 600 MG Q12 02/27 1000 AC 03/03 PO 0946 Insulin Aspart 0 TIDAC 02/27 0800 AC 03/03 SC 1204 Oseltamivir Phosphate 75 MG BID 02/27 1527 AC 03/03 PO 03/03 1526 0946 Phosphate 250 MG PC AND AT BEDTIME 03/01 0900 AC 03/03 PO 1204 Senna 187 MG AT BEDTIME PRN 03/01 1200 AC PO Results Last 48 Hrs of Labs/Mics: Laboratory Tests 03/03/16 0838: 03/03/16 0445: RBC 4.02 L, MCV 90.4, MCH 29.0, RDW 14.8 H, MPV 9.1, Gran % 65.2, Lymphocytes % 24.9, Monocytes % 8.6, Eosinophils % 0.9, Basophils % 0.4, Absolute Granulocytes 5.5, Absolute Lymphocytes 2.1, Absolute Monocytes 0.7 H, Absolute Eosinophils 0.1, Absolute Basophils 0, PUBS MCHC 32.1 L 03/03/16 0335: Anion Gap 7, Estimated GFR > 60, Glucose 205 H, Calcium 8.4, Phosphorus 3.4, Magnesium 1.9, Total Bilirubin 0.9, AST 22, ALT 31, Albumin 3.2 L 03/02/16 0500: Anion Gap 5, Estimated GFR > 60, Glucose 145 H, Calcium 8.0 L, Phosphorus 2.6, Magnesium 1.8, Total Bilirubin 0.6, AST 16 L, ALT 23, Albumin 2.9 L, CBC w Diff NO MAN DIFF REQ, RBC 3.52 L, MCV 90.2, MCH 29.3, RDW 14.6 H, MPV 9.4, Gran % 65.9, Lymphocytes % 24.0, Monocytes % 8.8, Eosinophils % 0.9, Basophils % 0.4, Absolute Granulocytes 4.5, Absolute Lymphocytes 1.6, Absolute Monocytes 0.6 , Absolute Eosinophils 0.1, Absolute Basophils 0, PUBS MCHC 32.5 L Assessment/Plan Assessment/Plan Assessment/Plan 1. Atrial fibrillation 2. History of nonischemic cardiomyopathy with recovery of ejection fraction 3. Defibrillator in place 4. Nonsustained ventricular tachycardia 5. Influenza infection, possible pneumonia 6. Mild troponin elevation, likely secondary to demand ischemia Recommendations: -No further episodes of significant arrhythmias -Continue current management -COntinue telemetry until AM Continue telemetry? Yes
--- NOTE | 2016-03-03 16:05 | CT SCAN REPORT ---
EXAMINATION: CT CHEST WITHOUT CONTRAST CLINICAL INFORMATION: Desaturation. Oxygen dependency for patient not on oxygen initially. Presumptive diagnosis of pneumonia. COMPARISON: Several prior chest x-rays, most recent of which is dated 03/02/2016. TECHNIQUE: Multidetector volumetric CT imaging of the chest was obtained noncontrast. Sagittal and coronal reformations were obtained. DLP: 672.03 mGy-cm FINDINGS: LUNGS: Lungs bilaterally symmetrically expanded. There is a dense calcified 1.6 x 0.5 cm granuloma in the left lower lobe stable dating back to a chest x-ray from 01/17/2009. Other scattered smaller 0.2-0.3 cm calcified granulomas are seen in the lungs bilaterally, not clearly appreciated on prior plain films. In addition, there are a few scattered noncalcified nodular densities, ranging in size between 0.1 and 0.3 cm in both upper lobes. There is small amount of volume loss and atelectasis seen in the inferior lingula and in the anteromedial left lower lobe. No focal consolidation is seen. No pleural calcification, effusion or pneumothorax. Central airways mildly thickened and patent. VASCULAR STRUCTURES: Thoracic aorta normal in caliber with moderate atherosclerotic calcifications. Heart size enlarged with enlargement of the left atrium and left ventricle. Right atrial and right ventricular pacer leads and right ventricular AICD lead noted. Severe coronary artery calcifications. No pericardial effusion. In the upper abdomen, there is likely an anatomic variant with separate origin of the hepatic artery directly from the aorta rather than the celiac axis. LYMPHATIC STRUCTURES: No mediastinal, hilar or axillary adenopathy. Calcified paraesophageal lymph node is seen. In the upper abdomen, borderline adenopathy is seen with a 1.1 cm aortocaval lymph node (series 2, image 68) noted. THYROID GLAND: Unremarkable to the extent included. UPPER ABDOMEN: Both adrenal glands are enlarged and nodular, measuring 1.9 cm on the right side and 2.3 x 2.7 cm on the left side and having attenuation values ranging between 0 and 7 Hounsfield units. Findings are consistent with bilateral incidental adrenal adenomas. In the kidneys bilaterally, there are multiple variably-sized exophytic and cortical renal cysts and other masses, which demonstrate higher than water attenuation. These renal masses will require additional assessment with dedicated renal imaging. BONES: Diffuse osteopenia with compression deformity of the T3 vertebral body (40% reduction in vertebral body height) and the T7 vertebral body (30% reduction in vertebral body height) is seen. Multilevel moderate vertebral spurring is also seen. There is a convex right thoracic scoliosis. IMPRESSION: 1. Mildly thickened airways with scattered areas of atelectasis in the lingula and left lower lobe. Findings may be reflective of reactive airways disease or bronchitis with mucus plugging. 2. No focal pneumonia. 3. Scattered calcified and noncalcified pulmonary nodules and calcified paraesophageal lymph node. Findings are most likely reflective of prior granulomatous disease. If the patient has underlying risk factors, follow-up CT scan in 12 months is recommended. If the patient has no underlying risk factors, no specific CT scan followup is recommended, per the Fleischner criteria. 4. Suspect dilated cardiomyopathy with left heart enlargement. 5. Severe coronary artery calcifications. 6. Mildly enlarged aortocaval lymph node, of uncertain significance and etiology. 7. Bilateral renal masses. Some of these may be simple cysts while others are indeterminate, possibly hyperdense cysts or solid masses. Further evaluation with dedicated renal MRI scan with and without contrast is recommended. 8. Bilateral adrenal masses, consistent with adrenal adenomas. 9. Osteopenia with compression deformities of T3 and T7.
--- NOTE | 2016-03-15 19:57 | Discharge Summary ---
Visit Information Visit Dates Admission Date: 02/28/16 Discharge Date: 03/03/16 Hospital Course Course Attending Physician: MARY MUJICA MD Primary Care Physician: JOSHUA HINKLE MD Consulting Request: Consulting Specialty: Cardiology Hospital Course: This is an 85-year-old male with past medical history significant for A. fib on Eliquis, AICD, pacemaker, hyperlipidemia, hypertension, BPH, diabetes, who presented with a chief complaint of cough, fever, chills. He was found to have positive rapid influenza test, chest x-ray suggestive of pneumonia, in addition, he leaked troponins during admission. Patient was admitted to ICU for further cardiac monitoring. Pt seen for the following problems while inpatient Respiratory/Infectious Disease: 1. PNA: On admission patient had positive rapid influenza test, and exam suspicious for pneumonia. He was started on Tamiflu, ceftriaxone, and doxycycline. His LRC grew yeast. After he was afebrile for > 24hrs we switched from IV to PO abx. Patient satting around 85 on room air at rest on day of discharge so we sent him with home O2. * Continue Augmentin for a total 7 days of treatment with both IV and PO antibiotics. * Tamiflu 75mg PO BID for a total of 5 days. * Mucinex 600mg PO Q12H * Home O2 * Follow up at COPD clinic 2. Pulmonary nodules: Scattered calcified and noncalcified pulmonary nodules and calcified paraesophageal lymph node. Findings are most likely reflective of priorgranulomatous disease. If the patient has underlying risk factors, follow- up CT scan in 12 months is recommended. If the patient has no underlying risk factors, no specific CT scan followup is recommended, per the Fleischner criteria. Cardiovascular: History of Atrial Fibrillation on Eliquis, AICD, PM, HLD, HTN. Patient is currently irregularly irregular, last echo in hospital showed EF 50- 55%. Of note, pt did have episode of asymptomatic short run of V. tach. Per cardiology he would benefit from stress test outpatient. * Con't cardiac med reg: Aspirin 81mg PO Daily, Atorvastatin 40mg PO Daily, Coreg 12.5mg PO BID, Eliquis 5mg PO BID, Digoxin 0.125mg PO Daily, Dofetilidie 250mcg PO Daily * Follow up outpatient with cardiology for stress test * Per CT: Suspect dilated cardiomyopathy with left heart enlargemet. Severe coronary artery calcifications. Mildly enlarged aortocaval lymph node, of uncertain significance and etiology. Endocrine: 1. History of IDDM * Con't home reg 2. Bilateral adrenal masses: visualized on CT consistent with adrenal adenomas. F/u out pt. 3. Osteopenia: Ct showed diffuse osteopenia. Pt will need out pt f/u. Renal: Per CT; pt has bilateral renal masses. Some of these may be simple cysts while others are indeterminate, possibly hyperdense cysts or solid masses. Further evaluation with dedicated renal MRI scan with and without contrast is recommended. Urology: History of BPH. * Con't Flomax Allergies: Coded Allergies: NO KNOWN ALLERGIES (12/27/15) Pertinent Lab Results: CT CHEST: LUNGS: Lungs bilaterally symmetrically expanded. There is a dense calcified 1.6 x 0.5 cm granuloma in the left lower lobe stable dating back to a chest x-ray from 01/17/2009. Other scattered smaller 0.2-0.3 cm calcified granulomas are seen in the lungs bilaterally, not clearly appreciated on prior plain films. In addition, there are a few scattered noncalcified nodular densities, ranging in size between 0.1 and 0.3 cm in both upper lobes. There is small amount of volume loss and atelectasis seen in the inferior lingula and in the anteromedial left lower lobe. No focal consolidation is seen. No pleural calcification, effusion or pneumothorax. Central airways mildly thickened and patent. VASCULAR STRUCTURES: Thoracic aorta normal in caliber with moderate atherosclerotic calcifications. Heart size enlarged with enlargement of the left atrium and left ventricle. Right atrial and right ventricular pacer leads and right ventricular AICD lead noted. Severe coronary artery calcifications. No pericardial effusion. In the upper abdomen, there is likely an anatomic variant with separate origin of the hepatic artery directly from the aorta rather than the celiac axis. LYMPHATIC STRUCTURES: No mediastinal, hilar or axillary adenopathy. Calcified paraesophageal lymph node is seen. In the upper abdomen, borderline adenopathy is seen with a 1.1 cm aortocaval lymph node (series 2, image 68) noted. THYROID GLAND: Unremarkable to the extent included. UPPER ABDOMEN: Both adrenal glands are enlarged and nodular, measuring 1.9 cm on the right side and 2.3 x 2.7 cm on the left side and having attenuation values ranging between 0 and 7 Hounsfield units. Findings are consistent with bilateral incidental adrenal adenomas. In the kidneys bilaterally, there are multiple variably-sized exophytic and cortical renal cysts and other masses, which demonstrate higher than water attenuation. These renal masses will require additional assessment with dedicated renal imaging. BONES: Diffuse osteopenia with compression deformity of the T3 vertebral body (40% reduction in vertebral body height) and the T7 vertebral body (30% reduction in vertebral body height) is seen. Multilevel moderate vertebral spurring is also seen. There is a convex right thoracic scoliosis. IMPRESSION: 1. Mildly thickened airways with scattered areas of atelectasis in the lingula and left lower lobe. Findings may be reflective of reactive airways disease or bronchitis with mucus plugging. 2. No focal pneumonia. 3. Scattered calcified and noncalcified pulmonary nodules and calcified paraesophageal lymph node. Findings are most likely reflective of prior granulomatous disease. If the patient has underlying risk factors, follow-up CT scan in 12 months is recommended. If the patient has no underlying risk factors, no specific CT scan followup is recommended, per the Fleischner criteria. 4. Suspect dilated cardiomyopathy with left heart enlargement. 5. Severe coronary artery calcifications. 6. Mildly enlarged aortocaval lymph node, of uncertain significance and etiology. 7. Bilateral renal masses. Some of these may be simple cysts while others are indeterminate, possibly hyperdense cysts or solid masses. Further evaluation with dedicated renal MRI scan with and without contrast is recommended. 8. Bilateral adrenal masses, consistent with adrenal adenomas. 9. Osteopenia with compression deformities of T3 and T7. Disposition Summary Disposition Principal Diagnosis: Pneumonia Additional Diagnosis: troponin leak Discharge Disposition: home health services Discharge Instructions General Discharge Information Code Status: Full Code Patient's Diet: as tolerated Patient's Activity: as tolerated Follow-Up Instructions/Appts: 1. follow up at COPD clinic 2. Follow up with PCP 3. Follow up with [facility] Medications at Discharge Discharge Medications: Continue taking these medications: METFORMIN HCL (Metformin) 850 MG TABLET 850 Milligram ORAL TWICE DAILY Qty = 60 Comments: DID NOT RECIEVE Magnesium Oxide (Magnesium Oxide) 400 MG TABLET 1 Tablet ORAL TWICE DAILY Qty = 60 Comments: TAKE 1 TABLET BY MOUTH TWICE A DAY - SIG Obtained From [facility] DID NOT RECIEVE Pravastatin Sodium (Pravastatin Sodium) 40 MG TABLET 40 Milligram ORAL DAILY Qty = 30 Comments: TAKE 1 TABLET AT BEDTIME - SIG Obtained From [facility]] Last Taken:08/21/13 Time: 1900 Furosemide (Furosemide) 40 MG TABLET 1 Tablet ORAL DAILY Qty = 90 Comments: TAKE 1 TABLET EVERY DAY - SIG Obtained From [facility] Last Taken: 08/22/13 Time: 1052 Glipizide (Glipizide) 10 MG TABLET 1 Tablet ORAL DAILY Qty = 60 Comments: TAKE 1 TABLET EVERY DAY - SIG Obtained From [facility] DID NOT RECIEVE Dofetilide (Tikosyn) 250 MCG CAPSULE 1 Capsule ORAL DAILY Comments: Last Taken: 03/03/16 Time: 10:00 AM Digoxin (Digoxin) 0.125 MG TAB 1 Tablet ORAL DAILY Qty = 30 Comments: DID NOT RECIEVE Finasteride (Finasteride) 5 MG TABLET 5 Milligram ORAL DAILY Qty = 90 Comments: TAKE 1 TABLET EVERY DAY - SIG Obtained From [facility] Last Taken: 08/22/13 Time: 1052 Carvedilol (Carvedilol) 12.5 MG TABLET 1 Tablet ORAL TWICE DAILY Qty = 180 Comments: TAKE 1 TABLET TWICE A DAY - SIG Obtained From [facility] Last Taken: 08/22/13 Time: 1052 Lisinopril (Lisinopril) 20 MG TABLET 20 Milligram ORAL DAILY Qty = 30 Comments: TAKE 1 TABLET EVERY DAY - SIG Obtained From [facility] Last Taken: 08/22/13 Time: 1052 Apixaban (Eliquis) 5 MG TABLET 1 Tablet ORAL TWICE DAILY Comments: Last Taken: 03/03/16 Time: 10:00 AM Tamsulosin HCl (Tamsulosin HCl) (Unknown Strength) CAP.ER.24H Unknown Dose ORAL As Directed Qty = 90 Comments: Last Taken: 03/03/16 Time: 10:00 AM Ondansetron (Zofran Odt) 4 MG TAB.RAPDIS 1 Tablet SUBLINGUAL THREE TIMES DAILY as needed for NAUSEA Qty = 10 Comments: NOT GIVEN IN HOSPITAL Start taking the following new medications: Amoxicillin/Clavulanate Potass (Amox-Clav 875-125 MG Tablet) 875 MG-125 MG TABLET 875 Milligram ORAL EVERY 12 HOURS Days = 3 No Refills Comments: Last Taken: 03/03/16 Time: 10:00 AM Copies To: [facility],JOSHUA
== END 2016-03-03 16:40 | disposition home health service (06) | DRG 194 ==
LOC: ENRESERVTM → ENRESERVDT → ERH 00:48 → ERHI 02:43 → CRI 02:43 → 2NA 06:33 → CRI 09:48
PROVIDERS: Emergency Medicine; Internal Medicine; Internal Medicine Interventional Cardiology; Radiology Diagnostic Radiology; Student in an Organized Health Care Education/Training Program; ADMIT Student in an Organized Health Care Education/Training Program
DX: J11.00 Influenza due to unidentified influenza virus with unspecified type of pneumonia (principal); I24.8 Other forms of acute ischemic heart disease; I47.2 Ventricular tachycardia; N17.9 Acute kidney failure, unspecified; I48.91 Unspecified atrial fibrillation; E11.9 Type 2 diabetes mellitus without complications; Z79.01 Long term (current) use of anticoagulants; Z95.0 Presence of cardiac pacemaker; Z95.810 Presence of automatic (implantable) cardiac defibrillator; E78.5 Hyperlipidemia, unspecified; I10 Essential (primary) hypertension; Z87.891 Personal history of nicotine dependence; N40.0 Benign prostatic hyperplasia without lower urinary tract symptoms; Z79.84 Long term (current) use of oral hypoglycemic drugs
CPT/HCPCS: CCU; 36415; 82436; 87040; 87070; 87071; 87449; 87450; 87804; 87804-59; 93005; 93010; 93306; 96374; 96375; J0696; J1940; J3490